=== PATIENT | female | born 1960 | race Caucasian/White ===

== ENCOUNTER 2017-03-22 08:38 | Outpatient (CLI) | payer OTHER ==
[~2017-03-22 08:38] MED LIST: ALPR-624 PO; ARIP10TA15 PO; ESTR1TAB19 PO; FLEC100T2 PO; GABA100C PO; LANS30CA37 PO; LANS30CA56 PO; NITR0.4T SL; PRO2.5T PO; TRAM50TA2 PO
[2017-03-22 09:14] LABS: BASOPHILS # (AUTO) 0.1 X10'3 (0-0.2); BASOPHILS % (AUTO) 0.8 % (0-1); EOSINOPHILS # (AUTO) 0.1 X10'3 (0-0.9); EOSINOPHILS % (AUTO) 1.9 % (0-6); HEMATOCRIT 38.7 % (35.0-45.0); HEMOGLOBIN 13.3 g/dl (12.0-16.0); LYMPHOCYTES % (AUTO) 29.2 % (21-51); MEAN CORPUSCULAR HEMOGLOBIN 28.5 PG (27.0-31.0); MEAN CORPUSCULAR HGB CONC 34.2 % (33.0-36.5); MEAN CORPUSCULAR VOLUME 83.4 FL (78-98); MEAN PLATELET VOLUME 8.4 FL (7.4-10.4); MONOCYTES # (AUTO) 0.3 X10'3 (0-0.9); MONOCYTES % (AUTO) 4.3 % (2-12); NEUTROPHILS # (AUTO) 4.3 X10'3 (1.8-7.7); NEUTROPHILS % (AUTO) 63.8 % (42-75); PLATELET COUNT 316 X10'3 (140-440); RED BLOOD COUNT 4.64 X10'6 (4.20-5.60); RED CELL DISTRIBUTION WIDTH 14.1 % (11.5-14.5); WHITE BLOOD COUNT 6.8 X10'3 (4.5-11.0)
[2017-03-22 09:17] LABS: CLARITY,URINE CLEAR (Clear); COLOR,URINE YELLOW (Yellow); GLUCOSE, URINE NEGATIVE (Neg); KETONES,URINE NEGATIVE (Neg); LEUKOCYTE ESTERASE ,URINE NEGATIVE (Neg); NITRITES, URINE NEGATIVE (Neg); OCCULT BLOOD,URINE LARGE (Neg); PH,URINE 5.5 (4.8-8.0); PROTEIN,URINE NEGATIVE (Neg); UROBILINOGEN,URINE 0.2 E.U/dL (0.2-1.0)
[2017-03-22 09:22] LABS: HEMOGLOBIN A1C 5.7 % (4.5-6.2)
[2017-03-22 09:28] LABS: UA COLLECTION TYPE NON-SPECIFIED
[2017-03-22 09:30] LABS: BACTERIA,URINE 2+ /HPF (Neg); MUCUS STRANDS FEW /LPF (Neg); RBC,URINE 0-2 /HPF (0-2); WBC,URINE 0-4 /HPF (0-4)
[2017-03-22 09:31] LABS: SQUAMOUS EPITHELIAL CELL,UR MODERATE /LPF (FEW)
[2017-03-22 09:38] LABS: ALANINE AMINOTRANSFERASE 14 U/L (12-78); ALBUMIN 3.5 G/DL (3.4-5.0); ALBUMIN/GLOBULIN RATIO 0.9 (1.1-1.5); ALKALINE PHOSPHATASE 93 IU/L (46-116); ANION GAP 10 (8-16); ASPARTATE AMINO TRANSFERASE 9 U/L (10-37); BILIRUBIN,TOTAL 0.8 MG/DL (0.1-1.0); BLOOD UREA NITROGEN 12 MG/DL (7-18); BUN/CREATININE RATIO 10.9 (6.6-38.0); CALCIUM 9.1 MG/DL (8.5-10.1); CHLORIDE 106 MMOL/L (99-107); CHOL/HDL RATIO 2.5 (0.00-4.99); CHOLESTEROL 135 MG/DL (0-200); GLUCOSE 107 MG/DL (70-104); HDL CHOLESTEROL 53 MG/DL (35-60); LDL CHOLESTEROL 67 MG/DL (50-100); SODIUM 143 MMOL/L (135-145); TOTAL PROTEIN 7.4 G/DL (6.4-8.2); TRIGLYCERIDES 147 MG/DL (20-135); eGFR 51 ML/MIN
[2017-03-23 13:20] LABS: MICROALB/CRT, RATIO 2.4 mg/g creat (0.0-30.0)
[2017-03-24 10:57] LABS: VITAMIN D, 25-HYDROXY 55.4 ng/mL (30.0-100.0)
== END 2017-03-22 23:59 | disposition home or self-care (01) ==
LOC: LAB 08:38
PROVIDERS: ATTEND Family Medicine
DX: Z00.01 Encounter for general adult medical examination with abnormal findings (principal); R73.09 Other abnormal glucose; I10 Essential (primary) hypertension; E78.2 Mixed hyperlipidemia; E55.9 Vitamin D deficiency, unspecified; E03.9 Hypothyroidism, unspecified
CPT/HCPCS: 36415; 80053; 80061; 81001; 82043; 82306; 82570; 83036; 84443; 84550; 85025

== ENCOUNTER 2017-04-21 13:24 | Emergency (ER) | payer OTHER ==
[~2017-04-21] VITALS: Ht 5367.7 cm; Wt 109.0 kg
[2017-04-21] MEDS ORDERED: dexamethasone 0.5 mg/5ml unit-dose oral solution PO STA (14:00)
[2017-04-21] MEDS ORDERED: AZIT250T2 PO (14:03)
[2017-04-21] MEDS ORDERED: GUAI-178 PO (14:03)
[2017-04-21] MEDS ORDERED: dexamethasone 4mg tablet PO ONE ×2 (14:20→14:30)
[2017-04-21 14:32] VITALS: BP 134/71
== END 2017-04-21 14:39 | disposition home or self-care (01) ==
LOC: ER 13:24
DX: J20.9 Acute bronchitis, unspecified (principal); I10 Essential (primary) hypertension; I49.9 Cardiac arrhythmia, unspecified; Z88.8 Allergy status to other drugs, medicaments and biological substances; Z79.899 Other long term (current) drug therapy
CPT/HCPCS: 99283; J8540

== ENCOUNTER 2017-06-23 19:23 | Observation (INO) | payer OTHER ==
[~2017-06-23] VITALS: Ht 165.1 cm; Wt 106.8 kg
[~2017-06-23 19:23] MED LIST changes: +GUAI-178 PO
[2017-06-23] MEDS ORDERED: nitroGLYCERIN 0.4mg SUBLingual tab SL PRN ×3 (19:50→23:10)
[2017-06-23] MEDS ORDERED: aspirin 81mg tab.chew PO ONE ×2 (19:50→21:15)
[2017-06-23 20:41] LABS: BASOPHILS # (AUTO) 0.1 X10'3 (0-0.2); BASOPHILS % (AUTO) 0.5 % (0-1); EOSINOPHILS # (AUTO) 0.2 X10'3 (0-0.9); EOSINOPHILS % (AUTO) 2.2 % (0-6); HEMATOCRIT 39.6 % (35.0-45.0); HEMOGLOBIN 13.4 g/dl (12.0-16.0); LYMPHOCYTES # (AUTO) 2.6 X10'3 (1.1-4.8); LYMPHOCYTES % (AUTO) 26.6 % (21-51); MEAN CORPUSCULAR HEMOGLOBIN 28.4 PG (27.0-31.0); MEAN CORPUSCULAR HGB CONC 33.9 % (33.0-36.5); MEAN CORPUSCULAR VOLUME 83.8 FL (78-98); MEAN PLATELET VOLUME 9.3 FL (7.4-10.4); MONOCYTES # (AUTO) 0.4 X10'3 (0-0.9); MONOCYTES % (AUTO) 4.1 % (2-12); NEUTROPHILS # (AUTO) 6.4 X10'3 (1.8-7.7); NEUTROPHILS % (AUTO) 66.6 % (42-75); PLATELET COUNT 301 X10'3 (140-440); RED BLOOD COUNT 4.72 X10'6 (4.20-5.60); RED CELL DISTRIBUTION WIDTH 13.8 % (11.5-14.5); WHITE BLOOD COUNT 9.6 X10'3 (4.5-11.0)
[2017-06-23 20:51] LABS: INR 0.9 INR; PARTIAL THROMBOPLASTIN TIME 24 SECONDS (22-32); PROTHROMBIN TIME 9.1 SECONDS (9.0-12.0)
[2017-06-23 20:56] LABS: ALANINE AMINOTRANSFERASE 18 U/L (12-78); ALBUMIN 2.9 G/DL (3.4-5.0); ALBUMIN/GLOBULIN RATIO 0.9 (1.1-1.5); ALKALINE PHOSPHATASE 73 IU/L (46-116); ANION GAP 10 (8-16); ASPARTATE AMINO TRANSFERASE 11 U/L (10-37); BILIRUBIN,TOTAL 0.3 MG/DL (0.1-1.0); BLOOD UREA NITROGEN 14 MG/DL (7-18); BUN/CREATININE RATIO 18.2 (6.6-38.0); CALCIUM 7.9 MG/DL (8.5-10.1); CHLORIDE 111 MMOL/L (99-107); CREATININE 0.77 MG/DL (0.40-0.90); GLUCOSE 116 MG/DL (70-104); SODIUM 146 MMOL/L (135-145); TOTAL CARBON DIOXIDE 25.5 MMOL/L (24-32); TOTAL PROTEIN 6.2 G/DL (6.4-8.2); eGFR 77 ML/MIN
[2017-06-23] MEDS: potassium 10mEq/100ml NS w/LIDOcaine (10mg/bag) IV SCH (22:58)
[2017-06-23] MEDS ORDERED: acetaminophen 325mg tablet PO PRN (23:05)
[2017-06-23] MEDS ORDERED: magnesium hydroxide 30ml (MOM) UD suspension PO PRN (23:05)
[2017-06-23] MEDS ORDERED: mag hydrox/Alum hydrox/simeth 30ml oral suspension PO PRN (23:05)
[2017-06-23] MEDS ORDERED: ALPRAZolam 0.5mg tablet PO PRN (23:10)
[2017-06-23] MEDS: flecainide 50mg tablet PO SCH (23:29)
[2017-06-24] VITALS (14 sets, daily range): BP systolic 110–150; BP diastolic 53–85
[2017-06-24] MEDS: flecainide 50mg tablet PO SCH ×2 (00:02→07:43)
[2017-06-24] MEDS ORDERED: flecainide 50mg tablet PO ONE (00:05)
[2017-06-24] MEDS ORDERED: potass W/LIDOcaine 10mEq/100ml 100 ML IV ONE (00:25)
[2017-06-24] MEDS: sodium chloride 0.45% 1,000 ML IV SCH ×2 (01:14→09:03)
[2017-06-24] MEDS: potassium 10mEq/100ml NS w/LIDOcaine (10mg/bag) IV SCH (02:12)
[2017-06-24] MEDS ORDERED: aripiprazole 5mg tablet PO SCH (08:00)
[2017-06-24] MEDS ORDERED: gabapentin 100mg capsule PO SCH (08:00)
[2017-06-24] MEDS ORDERED: heparin, porcine 5000 units/ml vial SQ SCH (08:00)
[2017-06-24] MEDS ORDERED: MORPHINE 2MG in 2ml NS syringe IV PRN (08:30)
[2017-06-24 08:48] LABS: BASOPHILS # (AUTO) 0.1 X10'3 (0-0.2); BASOPHILS % (AUTO) 1.4 % (0-1); EOSINOPHILS # (AUTO) 0.2 X10'3 (0-0.9); EOSINOPHILS % (AUTO) 2.1 % (0-6); HEMATOCRIT 37.6 % (35.0-45.0); HEMOGLOBIN 12.6 g/dl (12.0-16.0); LYMPHOCYTES # (AUTO) 2.1 X10'3 (1.1-4.8); LYMPHOCYTES % (AUTO) 27.2 % (21-51); MEAN CORPUSCULAR HEMOGLOBIN 28.3 PG (27.0-31.0); MEAN CORPUSCULAR HGB CONC 33.4 % (33.0-36.5); MEAN CORPUSCULAR VOLUME 84.9 FL (78-98); MEAN PLATELET VOLUME 8.7 FL (7.4-10.4); MONOCYTES # (AUTO) 0.4 X10'3 (0-0.9); MONOCYTES % (AUTO) 4.9 % (2-12); NEUTROPHILS # (AUTO) 4.9 X10'3 (1.8-7.7); NEUTROPHILS % (AUTO) 64.4 % (42-75); PLATELET COUNT 280 X10'3 (140-440); RED BLOOD COUNT 4.43 X10'6 (4.20-5.60); RED CELL DISTRIBUTION WIDTH 14.4 % (11.5-14.5); WHITE BLOOD COUNT 7.6 X10'3 (4.5-11.0)
[2017-06-24 09:03] LABS: ALANINE AMINOTRANSFERASE 18 U/L (12-78); ALBUMIN 3.1 G/DL (3.4-5.0); ALBUMIN/GLOBULIN RATIO 0.8 (1.1-1.5); ALKALINE PHOSPHATASE 75 IU/L (46-116); ANION GAP 6 (8-16); ASPARTATE AMINO TRANSFERASE 13 U/L (10-37); BILIRUBIN,TOTAL 0.5 MG/DL (0.1-1.0); BLOOD UREA NITROGEN 15 MG/DL (7-18); BUN/CREATININE RATIO 15.2 (6.6-38.0); CALCIUM 9.2 MG/DL (8.5-10.1); CHLORIDE 107 MMOL/L (99-107); CREATININE 0.99 MG/DL (0.40-0.90); GLUCOSE 124 MG/DL (70-104); POTASSIUM 4.6 MMOL/L (3.5-5.1); SODIUM 143 MMOL/L (135-145); TOTAL PROTEIN 6.8 G/DL (6.4-8.2); eGFR 58 ML/MIN
[2017-06-24] MEDS ORDERED: GABA-532 (09:38)
[2017-06-24] MEDS ORDERED: GABA-530 PO (09:38)
[2017-06-24] MEDS ORDERED: LEVO50TA (09:47)
[2017-06-24] MEDS ORDERED: LISI2.5T2 (09:47)
[2017-06-24] MEDS ORDERED: ERGO500054 (09:47)
[2017-06-24] MEDS ORDERED: VALA10002 PO (09:47)
[2017-06-24] MEDS ORDERED: ATOR10TA70 (09:47)
[2017-06-24] MEDS ORDERED: aspirin 81mg tablet.DR PO SCH (10:50)
[2017-06-24] MEDS ORDERED: fentaNYL/PF 50MCG/1 ML 2ML syringe ONE (11:00)
[2017-06-24] MEDS ORDERED: heparin 1,000unit/ml 10ml vial 10 ML ONE (11:00)
[2017-06-24] MEDS ORDERED: iohexol 350MG/ML 100ml bottle IV ONE (11:00)
[2017-06-24] MEDS ORDERED: iohexol 350 MG/ML 50ML vial IV ONE (11:00)
[2017-06-24] MEDS ORDERED: LIDOcaine 1% w/EPI 1:100,000 30ml vial (MDV) ONE (11:00)
[2017-06-24] MEDS ORDERED: midazolam 2 mg/2 ml injection ONE (11:00)
[2017-06-24] MEDS ORDERED: nitroGLYCERIN-Tridil 50MG/D5W 250 ML IV ONE (11:01)
[2017-06-24] MEDS ORDERED: heparin 1,000 UNITS/NS 500ml 500 ML ONE (11:01)
[2017-06-24 13:16] LABS: ISTAT Hct MIX 34 %PCV (35-48); ISTAT O2 SATURATION MIX VENOUS 72 % (60-80); ISTAT SOURCE MIX
[2017-06-24 13:16] LABS: ISTAT HGB ART 11.9 g/dl (12.0-16.0); ISTAT Hct ART 35 %PCV (35-48); ISTAT O2 SATURATION ARTERIAL 98 % (95-98); ISTAT SOURCE ART
[2017-06-24] MEDS ORDERED: normal saline 1000ml 1,000 ML IV ONE (13:45)
[2017-06-24] MEDS ORDERED: HYDROcodone/acetaminophen 10/325mg tab PO PRN (16:05)
[2017-06-24] MEDS ORDERED: carVEDilol 3.125mg tablet PO SCH (20:00)
[2017-06-25] MEDS ORDERED: atorvastatin 20mg tablet PO SCH (08:00)
== END 2017-06-24 19:10 | disposition home or self-care (01) ==
LOC: EEVIPCON 19:24 → ER 19:24 → ED HOLD 23:03 → PCU 3S 06-24 01:27
PROVIDERS: ADMIT Emergency Medicine; ATTEND Family Medicine
DX: R07.89 Other chest pain (principal); E03.9 Hypothyroidism, unspecified; M79.7 Fibromyalgia; G47.30 Sleep apnea, unspecified; E78.5 Hyperlipidemia, unspecified; E11.9 Type 2 diabetes mellitus without complications; I10 Essential (primary) hypertension; I25.110 Atherosclerotic heart disease of native coronary artery with unstable angina pectoris; Z87.891 Personal history of nicotine dependence; Z96.659 Presence of unspecified artificial knee joint
CPT/HCPCS: 36415; 71045; 80053; 82803; 84484; 85014; 85025; 85610; 85730; 87070; 93005; 93306; 93460; 96374; 99285; A6257; C1769; G0378; J1644; J2250; J2274; J3010; J3480; J3490; J7030; Q9967; 99152; A4620

== ENCOUNTER 2017-08-11 07:08 | Emergency (ER) | payer OTHER ==
[~2017-08-11] VITALS: Ht 163.8 cm; Wt 109.1 kg
[~2017-08-11 07:08] MED LIST changes: -ARIP10TA15 PO; +ATOR10TA70; +ERGO500054; +GABA-530 PO; +GABA-532; -GABA100C PO; -GUAI-178 PO; -LANS30CA56 PO; +LEVO50TA; +LISI2.5T2; +VALA10002 PO
[2017-08-11 07:36] LABS: BASOPHILS # (AUTO) 0.1 X10'3 (0-0.2); EOSINOPHILS # (AUTO) 0.1 X10'3 (0-0.9); EOSINOPHILS % (AUTO) 1.3 % (0-6); HEMOGLOBIN 12.6 g/dl (12.0-16.0); LYMPHOCYTES # (AUTO) 2.1 X10'3 (1.1-4.8); LYMPHOCYTES % (AUTO) 28.7 % (21-51); MEAN CORPUSCULAR HEMOGLOBIN 28.5 PG (27.0-31.0); MEAN CORPUSCULAR HGB CONC 34.2 % (33.0-36.5); MEAN CORPUSCULAR VOLUME 83.4 FL (78-98); MEAN PLATELET VOLUME 8.6 FL (7.4-10.4); MONOCYTES # (AUTO) 0.3 X10'3 (0-0.9); MONOCYTES % (AUTO) 4.7 % (2-12); NEUTROPHILS # (AUTO) 4.6 X10'3 (1.8-7.7); NEUTROPHILS % (AUTO) 64.3 % (42-75); PLATELET COUNT 305 X10'3 (140-440); RED BLOOD COUNT 4.44 X10'6 (4.20-5.60); RED CELL DISTRIBUTION WIDTH 13.9 % (11.5-14.5); WHITE BLOOD COUNT 7.2 X10'3 (4.5-11.0)
[2017-08-11 07:59] LABS: ALANINE AMINOTRANSFERASE 23 U/L (12-78); ALBUMIN 3.1 G/DL (3.4-5.0); ALBUMIN/GLOBULIN RATIO 0.8 (1.1-1.5); ALKALINE PHOSPHATASE 89 IU/L (46-116); ANION GAP 11 (8-16); ASPARTATE AMINO TRANSFERASE 13 U/L (10-37); BILIRUBIN,TOTAL 0.6 MG/DL (0.1-1.0); BLOOD UREA NITROGEN 10 MG/DL (7-18); BUN/CREATININE RATIO 9.6 (6.6-38.0); CHLORIDE 106 MMOL/L (99-107); CREATININE 1.04 MG/DL (0.40-0.90); GLUCOSE 158 MG/DL (70-104); POTASSIUM 3.5 MMOL/L (3.5-5.1); SODIUM 142 MMOL/L (135-145); TOTAL CARBON DIOXIDE 25.2 MMOL/L (24-32); eGFR 54 ML/MIN
[2017-08-11 08:06] LABS: MAGNESIUM 1.7 MG/DL (1.5-2.4)
[2017-08-11 08:32] VITALS: BP 103/70
== END 2017-08-11 08:57 | disposition home or self-care (01) ==
LOC: ER 07:08
DX: M79.662 Pain in left lower leg (principal); R60.0 Localized edema; E03.9 Hypothyroidism, unspecified; I10 Essential (primary) hypertension; Z98.890 Other specified postprocedural states; Z79.899 Other long term (current) drug therapy; Z88.1 Allergy status to other antibiotic agents
CPT/HCPCS: 36415; 80053; 83735; 83880; 84484; 85025; 93971; 99285

== ENCOUNTER 2017-11-18 15:18 | Outpatient (CLI) | payer OTHER ==
[2017-11-18 16:04] LABS: ALBUMIN 3.2 G/DL (3.4-5.0); ANION GAP 9 (8-16); BLOOD UREA NITROGEN 12 MG/DL (7-18); BUN/CREATININE RATIO 10.4 (6.6-38.0); CHLORIDE 104 MMOL/L (99-107); CREATININE 1.15 MG/DL (0.40-0.90); GLUCOSE 119 MG/DL (70-104); POTASSIUM 3.5 MMOL/L (3.5-5.1); SODIUM 141 MMOL/L (135-145); TOTAL CARBON DIOXIDE 27.6 MMOL/L (24-32); eGFR 48 ML/MIN
[2017-11-18 16:07] LABS: HEMOGLOBIN A1C 6.4 % (4.5-6.2)
== END 2017-11-18 23:59 | disposition home or self-care (01) ==
LOC: LAB 15:18
PROVIDERS: ATTEND Family Medicine
DX: I10 Essential (primary) hypertension (principal); R73.09 Other abnormal glucose; Z87.891 Personal history of nicotine dependence
CPT/HCPCS: 36415; 80048; 83036

== ENCOUNTER 2018-01-13 14:13 | Outpatient (CLI) | payer OTHER ==
[~2018-01-13 14:13] MED LIST changes: +ALPR1TAB2 PO; +ASPI-1264 PO; +CHOL500050; +DILT120T14 PO; +FLEC50TA PO; +FURO-149 PO; +GABA300C PO; +HYDR-3972 PO; +LANS30TA4 PO; +LEVO50TA8 PO; +LISI-600 PO; +MEDR2.5T PO; +METF500T PO; +POTA10TA19 PO; +WALKERFR
== END 2018-01-13 23:59 | disposition home or self-care (01) ==
LOC: RAD 14:13
PROVIDERS: ATTEND Orthopaedic Surgery
DX: M22.41 Chondromalacia patellae, right knee (principal); M25.461 Effusion, right knee; I10 Essential (primary) hypertension; Z96.652 Presence of left artificial knee joint; Z87.891 Personal history of nicotine dependence; Z79.899 Other long term (current) drug therapy
CPT/HCPCS: 73721

== ENCOUNTER 2018-03-05 09:24 | Outpatient (CLI) | payer OTHER ==
[~2018-03-05 09:24] MED LIST changes: -ASPI-1264 PO
== END 2018-03-05 23:59 | disposition home or self-care (01) ==
LOC: LAB 09:24
PROVIDERS: ATTEND Family Medicine
DX: R73.02 Impaired glucose tolerance (oral) (principal); I10 Essential (primary) hypertension
CPT/HCPCS: 36415; 83036

== ENCOUNTER 2018-07-05 08:46 | Outpatient (CLI) | payer OTHER | END 2018-07-05 23:59 | disposition home or self-care (01) | LOC: LAB 08:46 | PROVIDERS: ATTEND Family Medicine | DX: R73.09 Other abnormal glucose (principal) | CPT/HCPCS: 36415; 83036 ==

== ENCOUNTER 2018-09-09 10:55 | Outpatient (CLI) | payer OTHER ==
[2018-11-04] MEDS ORDERED: UMEC62.5 INH (15:56)
[2018-11-04] MEDS ORDERED: NITR0.4T51 SL (15:56)
[2018-11-11] MEDS ORDERED: ATOR10TA PO (10:41)
[2018-11-11] MEDS ORDERED: DILT-35 PO (10:43)
[2018-11-11] MEDS ORDERED: ERGO500014 PO (10:43)
[2018-11-11] MEDS ORDERED: LEVO50TA8 PO (10:47)
[2018-11-11] MEDS ORDERED: LISI2.5T2 PO (10:48)
[2018-11-11] MEDS ORDERED: TRAM50TA2 PO (10:52)
[2018-11-11] MEDS ORDERED: POTA20TA19 PO (10:55)
[2018-11-11] MEDS ORDERED: ALPR-624 PO (10:56)
[2018-11-11] MEDS ORDERED: PROG100C11 PO (10:57)
== END 2018-09-09 23:59 | disposition home or self-care (01) ==
LOC: RAD 10:55
PROVIDERS: ATTEND Family Medicine
DX: R06.02 Shortness of breath (principal); R91.8 Other nonspecific abnormal finding of lung field; I10 Essential (primary) hypertension; Z87.891 Personal history of nicotine dependence
CPT/HCPCS: 71046

== ENCOUNTER 2018-09-11 09:08 | Outpatient (CLI) | payer OTHER ==
[2018-09-11 10:08] LABS: BASOPHILS # (AUTO) 0.1 X10'3 (0-0.2); BASOPHILS % (AUTO) 0.9 % (0-1); EOSINOPHILS # (AUTO) 0.2 X10'3 (0-0.9); EOSINOPHILS % (AUTO) 2.1 % (0-6); HEMATOCRIT 37.7 % (35.0-45.0); HEMOGLOBIN 12.2 g/dl (12.0-16.0); LYMPHOCYTES # (AUTO) 2.2 X10'3 (1.1-4.8); LYMPHOCYTES % (AUTO) 29.4 % (21-51); MEAN CORPUSCULAR HEMOGLOBIN 26.9 PG (27.0-31.0); MEAN CORPUSCULAR HGB CONC 32.3 g/dL (33.0-36.5); MEAN CORPUSCULAR VOLUME 83.4 FL (78-98); MEAN PLATELET VOLUME 8.4 FL (7.4-10.4); MONOCYTES # (AUTO) 0.4 X10'3 (0-0.9); MONOCYTES % (AUTO) 5.5 % (2-12); NEUTROPHILS # (AUTO) 4.6 X10'3 (1.8-7.7); NEUTROPHILS % (AUTO) 62.1 % (42-75); PLATELET COUNT 349 X10'3 (140-440); RED BLOOD COUNT 4.52 X10'6 (4.20-5.60); WHITE BLOOD COUNT 7.4 X10'3 (4.5-11.0)
[2018-09-11 10:25] LABS: ALANINE AMINOTRANSFERASE 19 U/L (12-78); ALBUMIN 3.1 G/DL (3.4-5.0); ALBUMIN/GLOBULIN RATIO 0.8 (1.1-1.5); ALKALINE PHOSPHATASE 88 IU/L (46-116); ANION GAP 10 (8-16); ASPARTATE AMINO TRANSFERASE 9 U/L (10-37); BILIRUBIN,TOTAL 0.6 MG/DL (0.1-1.0); BLOOD UREA NITROGEN 10 MG/DL (7-18); BUN/CREATININE RATIO 10.5 (6.6-38.0); CHLORIDE 105 MMOL/L (99-107); CHOL/HDL RATIO 2.4 (0.00-4.99); CHOLESTEROL 116 MG/DL (0-200); CREATININE 0.95 MG/DL (0.40-0.90); GLUCOSE 105 MG/DL (70-104); HDL CHOLESTEROL 49 MG/DL (35-60); LDL CHOLESTEROL 51 MG/DL (50-100); POTASSIUM 4.3 MMOL/L (3.5-5.1); SODIUM 140 MMOL/L (135-145); TOTAL CARBON DIOXIDE 25.3 MMOL/L (24-32); TOTAL PROTEIN 7.2 G/DL (6.4-8.2); TRIGLYCERIDES 136 MG/DL (20-135); eGFR 60 ML/MIN
[2018-09-12 08:24] LABS: MICROALB/CRT, RATIO <4.8 mg/g creat (0.0-30.0)
[2018-11-04] MEDS ORDERED: NITR0.4T51 SL (15:56)
[2018-11-04] MEDS ORDERED: UMEC62.5 INH (15:56)
[2018-11-11] MEDS ORDERED: ATOR10TA PO (10:41)
[2018-11-11] MEDS ORDERED: ERGO500014 PO (10:43)
[2018-11-11] MEDS ORDERED: DILT-35 PO (10:43)
[2018-11-11] MEDS ORDERED: LEVO50TA8 PO (10:47)
[2018-11-11] MEDS ORDERED: LISI2.5T2 PO (10:48)
[2018-11-11] MEDS ORDERED: TRAM50TA2 PO (10:52)
[2018-11-11] MEDS ORDERED: POTA20TA19 PO (10:55)
[2018-11-11] MEDS ORDERED: ALPR-624 PO (10:56)
[2018-11-11] MEDS ORDERED: PROG100C11 PO (10:57)
== END 2018-09-11 23:59 | disposition home or self-care (01) ==
LOC: LAB 09:08
PROVIDERS: ATTEND Family Medicine
DX: E03.9 Hypothyroidism, unspecified (principal); I10 Essential (primary) hypertension; E78.2 Mixed hyperlipidemia; R73.09 Other abnormal glucose; Z87.891 Personal history of nicotine dependence
CPT/HCPCS: 36415; 80053; 80061; 82043; 82570; 83036; 84443; 85025

== ENCOUNTER 2018-10-21 07:41 | Outpatient (CLI) | payer OTHER ==
[2018-10-21] VITALS (8 sets, daily range): BP systolic 121–137; BP diastolic 69–80
[~2018-10-21] VITALS: Ht 165.1 cm; Wt 112.7 kg
[2018-10-21] MEDS ORDERED: normal saline 500ml IV soln 500 ML IV ONE (08:30)
[2018-10-21] MEDS ORDERED: nitroGLYCERIN 0.4mg SUBLingual tab SL PRN (08:30)
[2018-10-21] MEDS ORDERED: aminophylline 250mg/10ml inj. IV PRN (08:30)
[2018-10-21] MEDS ORDERED: regadenoson 0.4mg/5ml syringe IV ONE (08:30)
[2018-11-04] MEDS ORDERED: UMEC62.5 INH (15:56)
[2018-11-04] MEDS ORDERED: NITR0.4T51 SL (15:56)
[2018-11-11] MEDS ORDERED: ATOR10TA PO (10:41)
[2018-11-11] MEDS ORDERED: DILT-35 PO (10:43)
[2018-11-11] MEDS ORDERED: ERGO500014 PO (10:43)
[2018-11-11] MEDS ORDERED: LEVO50TA8 PO (10:47)
[2018-11-11] MEDS ORDERED: LISI2.5T2 PO (10:48)
[2018-11-11] MEDS ORDERED: TRAM50TA2 PO (10:52)
[2018-11-11] MEDS ORDERED: POTA20TA19 PO (10:55)
[2018-11-11] MEDS ORDERED: ALPR-624 PO (10:56)
[2018-11-11] MEDS ORDERED: PROG100C11 PO (10:57)
== END 2018-10-21 23:59 | disposition home or self-care (01) ==
LOC: RAD 07:41
PROVIDERS: ATTEND Internal Medicine Cardiovascular Disease
DX: R07.9 Chest pain, unspecified (principal); I10 Essential (primary) hypertension; Z98.51 Tubal ligation status; Z87.891 Personal history of nicotine dependence
CPT/HCPCS: 78452; 93017; A9500; J0280; J2785; J7040

== ENCOUNTER 2018-11-12 08:34 | Inpatient (IN) | payer OTHER ==
[2018-11-04 12:48] LABS: BASOPHILS # (AUTO) 0.1 X10'3 (0-0.2); BASOPHILS % (AUTO) 0.9 % (0-1); EOSINOPHILS # (AUTO) 0.1 X10'3 (0-0.9); EOSINOPHILS % (AUTO) 1.5 % (0-6); LYMPHOCYTES # (AUTO) 2.5 X10'3 (1.1-4.8); LYMPHOCYTES % (AUTO) 31.4 % (21-51); MEAN CORPUSCULAR HEMOGLOBIN 27.5 PG (27.0-31.0); MEAN CORPUSCULAR HGB CONC 33.7 g/dL (33.0-36.5); MEAN CORPUSCULAR VOLUME 81.5 FL (78-98); MEAN PLATELET VOLUME 8.3 FL (7.4-10.4); MONOCYTES # (AUTO) 0.4 X10'3 (0-0.9); MONOCYTES % (AUTO) 5.3 % (2-12); NEUTROPHILS # (AUTO) 4.8 X10'3 (1.8-7.7); NEUTROPHILS % (AUTO) 60.9 % (42-75); PRE OP HEMATOCRIT 37.9 % (35.0-45.0); PRE OP HEMOGLOBIN 12.8 g/dL (12.0-16.0); PRE OP PLATELET COUNT 352 X10'3 (140-440); RED BLOOD COUNT 4.64 X10'6 (4.20-5.60); RED CELL DISTRIBUTION WIDTH 15.1 % (11.5-14.5)
[2018-11-04 13:08] LABS: ALBUMIN 3.3 G/DL (3.4-5.0); ALBUMIN/GLOBULIN RATIO 0.8 (1.1-1.5); ALKALINE PHOSPHATASE 94 IU/L (46-116); BLOOD UREA NITROGEN 8 MG/DL (7-18); BUN/CREATININE RATIO 8.1 (6.6-38.0); CHLORIDE 105 MMOL/L (99-107); CREATININE 0.99 MG/DL (0.40-0.90); PRE OP ALT 22 U/L (30-65); PRE OP ANION GAP 9 (8-16); PRE OP AST 13 U/L (10-37); PRE OP BILIRUB, TOTAL 0.9 MG/DL (0.0-1.0); PRE OP GLUCOSE 94 MG/DL (70-104); PRE OP POTASSIUM 3.8 MMOL/L (3.4-5.1); PRE OP SODIUM 142 MMOL/L (135-145); TOTAL CARBON DIOXIDE 28.4 MMOL/L (24-32); TOTAL PROTEIN 7.4 G/DL (6.4-8.2); eGFR 57 ML/MIN
[~2018-11-12] VITALS: Ht 165.1 cm; Wt 111.6 kg
[2018-11-12] VITALS (18 sets, daily range): BP systolic 90–137; BP diastolic 47–78
[~2018-11-12 08:34] MED LIST changes: -ALPR1TAB2 PO; +ATOR10TA PO; -ATOR10TA70; -CHOL500050; +DILT-35 PO; -DILT120T14 PO; +ERGO500014 PO; -ERGO500054; -FLEC100T2 PO; -GABA-530 PO; -GABA-532; -HYDR-3972 PO; -LANS30TA4 PO; -LEVO50TA; -LISI-600 PO; -LISI2.5T2; +LISI2.5T2 PO; -MEDR2.5T PO; -NITR0.4T SL; +NITR0.4T51 SL; -POTA10TA19 PO; +POTA20TA19 PO; -PRO2.5T PO; +PROG100C11 PO; +UMEC62.5 INH; -VALA10002 PO; -WALKERFR
[2018-11-12] MEDS ORDERED: hydrALAZINE 20mg/ml inj. IV PRN (11:15)
[2018-11-12] MEDS ORDERED: fentaNYL/PF 50MCG/1 ML 2ML syringe IV PRN ×2 (11:15)
[2018-11-12] MEDS ORDERED: ringers solution, lacted 1,000 ML IV SCH ×2 (11:15→12:30)
[2018-11-12] MEDS ORDERED: labetalol 20mg/4ml (5mg/ml) syringe IV PRN (11:15)
[2018-11-12] MEDS ORDERED: morphine 4 MG/ML inj SYRINge IV PRN ×2 (11:15)
[2018-11-12] MEDS ORDERED: ondansetron/PF 4mg/2ml inj IV PRN (11:15)
[2018-11-12] MEDS ORDERED: tetracaine 1% (10mg/ml) pres. free inj. ONE (11:18)
[2018-11-12] MEDS ORDERED: dexmedetomidine 200mcg/2ml inj. IV ONE (11:18)
[2018-11-12] MEDS ORDERED: morphine 10mg/ml inj. ONE (11:33)
[2018-11-12] MEDS ORDERED: vancomycin 1,000mg inj ONE (11:33)
[2018-11-12] MEDS ORDERED: epiNEPHrine 1 mg/ml inj ONE (11:33)
[2018-11-12] MEDS ORDERED: ketorolac trometh. 30mg/ml inj. ONE (11:33)
[2018-11-12] MEDS ORDERED: ROPIVAcaine 0.5% (5mg/ml) 30ml vial ONE (11:34)
[2018-11-12] MEDS ORDERED: mineral oil 10ml sterile, topical TP ONE (11:34)
[2018-11-12] MEDS ORDERED: ceFAZolin 1000mg inj ONE (11:34)
[2018-11-12] MEDS ORDERED: MIDAZolam 1mg/ml 10ml vial ONE (12:09)
[2018-11-12] MEDS ORDERED: propofol inj 20 ML IV ONE (12:23)
[2018-11-12] MEDS ORDERED: oxyCODONE SR 10mg (sust. release) tab -2 tabs (20mg) PO ONE (12:30)
[2018-11-12] MEDS ORDERED: cefazolin/dext.iso 2gm/50ml 50 ML IV ONE (12:30)
[2018-11-12] MEDS ORDERED: famotidine 20mg tablet PO ONE (12:30)
[2018-11-12] MEDS ORDERED: tranexamic acid inj. 1,000 MG in normal saline 100 ML IV ONE (12:30)
[2018-11-12] MEDS ORDERED: gabapentin 300mg capsule PO ONE (12:30)
[2018-11-12] MEDS ORDERED: acetaminophen 325mg tablet PO ONE (12:30)
[2018-11-12] MEDS ORDERED: clindamycin-Cleocin 900mg/D5W 50 ML IV ONE (12:30)
[2018-11-12] MEDS ORDERED: metoclopramide 5 mg/ml inj IV ONE (12:30)
[2018-11-12] MEDS ORDERED: magnesium hydroxide 30ml (MOM) UD suspension PO PRN (14:20)
[2018-11-12] MEDS ORDERED: tranexamic acid inj. 1,100 MG in normal saline 100ml IV soln 100 ML IV ONE (14:20)
[2018-11-12] MEDS ORDERED: diphenhydrAMINE 25mg capsule PO PRN (14:20)
[2018-11-12] MEDS ORDERED: bisacodyl 10mg suppository rectal RC PRN (14:20)
[2018-11-12] MEDS ORDERED: acetaminophen 325mg tablet PO PRN (14:20)
[2018-11-12] MEDS ORDERED: oxyCODONE IR 5mg (immed. release) tablet PO PRN (14:20)
--- NOTE | 2018-11-12 15:00 | NUR ---
Received from OR via [facility] , accompanied by Anesthesiologist TIKI and report given by Anesthesiolgist. PATIENT WITH 18G PIV IN LEFT UE RUNNING LR AT 100. PATIENT WITH RIGHT KNEE WRAP, DEISY, + DORSALIS PEDIS, POWDER PACK AND NO DRAINAGE PRESENT TO DRESSING. PATIENT WITGH 10L MASK ON WITH 100% SATURATIONS. DENIES PAIN 2' NERVE BLOCK T11-T12 SENSATION AND SPINAL ANESTHESIA. ON Q ATTACHED UPON ARRIVAL. Addendum: 11/12/18 at 1516 by Delfino Salinas RN, RN Amended: Links added.
--- NOTE | 2018-11-12 16:00 | NUR ---
ALL CRITERIA FOR TRANSFER TO THE FLOOR HAS BEEN ACHIEVED. VSS. BED LOW, CALL LIGHT AND VS. SET IN PLACE. RN PRESENT TO ACCEPT CARE. PATIENT RESTING COMFORTABLY IN BED. BELONGINGS SENT WITH PATIENT. DRESSINGS CDI. CARE TURNED OVER TO TIBURCIO CASTILLO. VSS . DENIES PAIN. Addendum: 11/12/18 at 1633 by Delfino Sosa - TIBURCIO DEY Amended: Links added.
[2018-11-12] MEDS: ROPIVAcaine 0.2%/PF PAIN PUMP 550 ML IJ SCH (16:11)
[2018-11-12] MEDS ORDERED: ALPRAZolam 0.5mg tablet PO PRN (16:20)
[2018-11-12] MEDS ORDERED: nitroGLYCERIN 0.4mg SUBLingual tab SL PRN (16:20)
[2018-11-12] MEDS ORDERED: traMADol 50MG tablet PO PRN (16:20)
[2018-11-12] MEDS: ondansetron/PF 4mg/2ml inj IV PRN (16:38)
--- NOTE | 2018-11-12 18:10 | NUR ---
Problems reprioritized. Patient report given, questions answered & plan of care reviewed with MAURISIO DEY.
[2018-11-12] MEDS: ceFAZolin 1GM/D5W- ADD-VANTAGE 50 ML IV SCH ×2 (19:34→23:44)
[2018-11-12] MEDS: potassium cl 20mEq in 1/2 NS 1,000 ML IV SCH ×2 (19:35→22:20)
[2018-11-12] MEDS: HYDROmorphone inj. 0.5 MG/0.5 ML DISP.SYRIN IV PRN (19:35)
[2018-11-12] MEDS ORDERED: proCHLORperazine 25mg suppository RC PRN (19:55)
--- NOTE | 2018-11-12 19:57 | NUR ---
called DR. Miller for nausea uncontrolled with zofran. compazine ordered suppository as first preference, IV if needed. Patient declined compazine suppository at this time. requested benadryl first and will try compazine later. c/o itching nose "probably from the narcotics".
[2018-11-12] MEDS: metFORMIN 500mg tablet PO SCH (20:00)
[2018-11-12] MEDS: acetaminophen 325mg tablet PO SCH ×2 (20:00→23:48)
[2018-11-12] MEDS: flecainide 50mg tablet PO SCH (20:00)
[2018-11-12] MEDS ORDERED: gabapentin 300mg capsule PO SCH (21:00)
[2018-11-12] MEDS: sennosides 8.6mg tablet PO SCH (21:00)
[2018-11-12] MEDS: progesterone, micronized 100mg capsule PO SCH (21:00)
[2018-11-12] MEDS: gabapentin 300mg capsule PO SCH (23:45)
[2018-11-13 02:27] VITALS: BP 115/62
[2018-11-13] MEDS: oxyCODONE IR 5mg (immed. release) tablet PO PRN ×4 (04:26→19:27)
[2018-11-13] MEDS: potassium cl 20mEq in 1/2 NS 1,000 ML IV SCH ×3 (04:30→22:20)
[2018-11-13] MEDS: HYDROmorphone inj. 0.5 MG/0.5 ML DISP.SYRIN IV PRN (05:47)
[2018-11-13 06:01] LABS: BASOPHILS % (AUTO) 0.4 % (0-1); EOSINOPHILS # (AUTO) 0.1 X10'3 (0-0.9); EOSINOPHILS % (AUTO) 0.8 % (0-6); HEMATOCRIT 30.5 % (35.0-45.0); HEMOGLOBIN 10.2 g/dl (12.0-16.0); LYMPHOCYTES # (AUTO) 1.5 X10'3 (1.1-4.8); LYMPHOCYTES % (AUTO) 19.9 % (21-51); MEAN CORPUSCULAR HEMOGLOBIN 27.9 PG (27.0-31.0); MEAN CORPUSCULAR HGB CONC 33.3 g/dL (33.0-36.5); MEAN CORPUSCULAR VOLUME 83.7 FL (78-98); MEAN PLATELET VOLUME 8.4 FL (7.4-10.4); MONOCYTES # (AUTO) 0.5 X10'3 (0-0.9); MONOCYTES % (AUTO) 6.2 % (2-12); NEUTROPHILS # (AUTO) 5.7 X10'3 (1.8-7.7); NEUTROPHILS % (AUTO) 72.7 % (42-75); PLATELET COUNT 247 X10'3 (140-440); RED BLOOD COUNT 3.65 X10'6 (4.20-5.60); RED CELL DISTRIBUTION WIDTH 15.4 % (11.5-14.5); WHITE BLOOD COUNT 7.8 X10'3 (4.5-11.0)
[2018-11-13 06:09] LABS: ANION GAP 7 (8-16); CHLORIDE 105 MMOL/L (99-107); POTASSIUM 3.8 MMOL/L (3.5-5.1); SODIUM 139 MMOL/L (135-145); TOTAL CARBON DIOXIDE 27.2 MMOL/L (24-32)
--- NOTE | 2018-11-13 06:19 | NUR ---
reported to days. noted pt pain level and dilaudid given.
[2018-11-13 06:30] VITALS: BP 96/45
--- NOTE | 2018-11-13 06:47 | NUR ---
I have received patient report from Luz DEY
[2018-11-13] MEDS ORDERED: ergocalciferol (Vitamin D) 50,000 unit capsule PO SCH (08:00)
[2018-11-13] MEDS: furosemide 40mg tablet PO SCH (08:00)
[2018-11-13] MEDS: gabapentin 300mg capsule PO SCH ×2 (08:04→20:27)
[2018-11-13] MEDS: flecainide 50mg tablet PO SCH ×2 (08:04→20:28)
[2018-11-13] MEDS: metFORMIN 500mg tablet PO SCH ×2 (08:04→19:27)
[2018-11-13] MEDS: pantoprazole 40mg Tablet.DR PO SCH (08:04)
[2018-11-13] MEDS: levoTHYROXINE 25mcg tablet PO SCH (08:05)
[2018-11-13] MEDS: atorvastatin 10mg tablet PO SCH (08:06)
[2018-11-13] MEDS: potassium Cl 20 mEq SR tablet PO SCH (08:06)
[2018-11-13] MEDS: estradiol 1mg tablet PO SCH (08:06)
[2018-11-13] MEDS: lisinopril 2.5mg tablet PO SCH (08:06)
[2018-11-13] MEDS: acetaminophen 325mg tablet PO SCH ×3 (08:07→20:28)
[2018-11-13] MEDS: enoxaparin 40mg/0.4ml syringe SQ SCH (08:08)
[2018-11-13] MEDS ORDERED: ASPI-1264 PO (08:33)
[2018-11-13] MEDS ORDERED: OXYC-150 PO (08:33)
[2018-11-13] MEDS: ipratropium 0.5 MG/2.5ML nebule NEB SCH ×4 (09:22→21:07)
[2018-11-13 10:00] VITALS: BP 100/58
[2018-11-13] MEDS: HYDROmorphone 1 mg/ml syringe IV PRN ×3 (11:49→19:58)
--- NOTE | 2018-11-13 13:58 | NUR ---
Joint surgery consult: Pt s/p R TKA advanced to regular diet. Pt seen by MARIO ALBERTO for written/verbal high protein ed w/ RD contact information provided. Pt endorses good appetite and agrees to blueberry burmese yogurt only w/ breakfast tomorrow. LBM 11/11. Will continue to monitor. Addendum: 11/13/18 at [address] Amended: Links added.
--- NOTE | 2018-11-13 14:00 | NUR ---
on q moved to 10ml/hr
--- NOTE | 2018-11-13 17:37 | NUR ---
Patient refused blood sugars
[2018-11-13 18:00] VITALS: BP 143/66
--- NOTE | 2018-11-13 18:00 | NUR ---
Patient in room ORTHO 4016. I have received report from AIDE and had the opportunity to ask questions and assume patient care.
--- NOTE | 2018-11-13 18:00 | NUR ---
Patient in room ORTHO 4016. I have received report from TIBURCIO Cespedes and had the opportunity to ask questions and assume patient care.
--- NOTE | 2018-11-13 18:23 | NUR ---
Patient report given to Quincy Rn's
--- NOTE | 2018-11-13 20:07 | NUR ---
UQ pump increase to 14 ml/h
[2018-11-13] MEDS: celeCOXIB 100mg capsule PO SCH (20:27)
[2018-11-13] MEDS: sennosides 8.6mg tablet PO SCH (21:00)
[2018-11-13] MEDS: progesterone, micronized 100mg capsule PO SCH (21:00)
[2018-11-13 22:00] VITALS: BP 140/59
[2018-11-13] MEDS: oxyCODONE/APAP 10/325mg tablet PO PRN (22:55)
[2018-11-14] MEDS: acetaminophen 325mg tablet PO SCH ×3 (01:25→14:00)
[2018-11-14] MEDS: HYDROmorphone 1 mg/ml syringe IV PRN ×3 (01:26→20:30)
[2018-11-14] MEDS: diphenhydrAMINE 25mg capsule PO PRN ×2 (02:42→22:45)
[2018-11-14] MEDS: ipratropium 0.5 MG/2.5ML nebule NEB SCH ×4 (03:07→20:18)
[2018-11-14] MEDS: oxyCODONE/APAP 10/325mg tablet PO PRN ×6 (05:23→22:46)
[2018-11-14 06:00] VITALS: BP 149/69
[2018-11-14] MEDS: potassium cl 20mEq in 1/2 NS 1,000 ML IV SCH (06:20)
--- NOTE | 2018-11-14 06:20 | NUR ---
Problems reprioritized. Patient report given, questions answered & plan of care reviewed with jess.
--- NOTE | 2018-11-14 06:35 | NUR ---
Problems reprioritized. Patient report given, questions answered & plan of care reviewed with TIBURCIO Cedeno.
--- NOTE | 2018-11-14 06:41 | NUR ---
Patient in room ORTHO 4016. I have received report from Anisa DEY and had the opportunity to ask questions and assume patient care.
[2018-11-14 06:43] LABS: BASOPHILS % (AUTO) 0.5 % (0-1); EOSINOPHILS % (AUTO) 0.5 % (0-6); HEMATOCRIT 33.6 % (35.0-45.0); HEMOGLOBIN 11.3 g/dl (12.0-16.0); LYMPHOCYTES # (AUTO) 1.7 X10'3 (1.1-4.8); MEAN CORPUSCULAR HEMOGLOBIN 27.7 PG (27.0-31.0); MEAN CORPUSCULAR HGB CONC 33.7 g/dL (33.0-36.5); MEAN CORPUSCULAR VOLUME 82.2 FL (78-98); MEAN PLATELET VOLUME 8.6 FL (7.4-10.4); MONOCYTES # (AUTO) 0.6 X10'3 (0-0.9); MONOCYTES % (AUTO) 6.9 % (2-12); NEUTROPHILS # (AUTO) 6.4 X10'3 (1.8-7.7); NEUTROPHILS % (AUTO) 73.1 % (42-75); PLATELET COUNT 291 X10'3 (140-440); RED BLOOD COUNT 4.09 X10'6 (4.20-5.60); RED CELL DISTRIBUTION WIDTH 15.7 % (11.5-14.5); WHITE BLOOD COUNT 8.8 X10'3 (4.5-11.0)
[2018-11-14] MEDS: furosemide 40mg tablet PO SCH (08:00)
[2018-11-14] MEDS: enoxaparin 40mg/0.4ml syringe SQ SCH (09:09)
[2018-11-14] MEDS: lisinopril 2.5mg tablet PO SCH (09:11)
[2018-11-14] MEDS: celeCOXIB 100mg capsule PO SCH ×2 (09:11→20:24)
[2018-11-14] MEDS: estradiol 1mg tablet PO SCH (09:11)
[2018-11-14] MEDS: flecainide 50mg tablet PO SCH ×2 (09:11→20:24)
[2018-11-14] MEDS: pantoprazole 40mg Tablet.DR PO SCH (09:11)
[2018-11-14] MEDS: gabapentin 300mg capsule PO SCH ×2 (09:11→20:24)
[2018-11-14] MEDS: potassium Cl 20 mEq SR tablet PO SCH (09:12)
[2018-11-14] MEDS: levoTHYROXINE 25mcg tablet PO SCH (09:12)
[2018-11-14] MEDS: atorvastatin 10mg tablet PO SCH (09:12)
[2018-11-14] MEDS: metFORMIN 500mg tablet PO SCH ×2 (09:12→20:24)
[2018-11-14 10:00] VITALS: BP 125/83
[2018-11-14] MEDS: ROPIVAcaine 0.2%/PF PAIN PUMP 550 ML IJ SCH (11:15)
[2018-11-14] MEDS ORDERED: acetaminophen 325mg tablet PO PRN (14:20)
[2018-11-14] MEDS: ondansetron/PF 4mg/2ml inj IV PRN (16:33)
[2018-11-14 18:00] VITALS: BP 133/76
--- NOTE | 2018-11-14 18:00 | NUR ---
Patient in room ORTHO 4016. I have received report from miami and had the opportunity to ask questions and assume patient care.
--- NOTE | 2018-11-14 18:00 | NUR ---
Patient in room ORTH[facility] 4016. I have received report from TIBURCIO Crum and had the opportunity to ask questions and assume patient care.
--- NOTE | 2018-11-14 18:02 | NUR ---
Problems reprioritized. Patient report given, questions answered & plan of care reviewed with Anisa DEY.
[2018-11-14] MEDS: proCHLORperazine 10 MG/2 ml inj IV PRN (18:34)
[2018-11-14] MEDS: progesterone, micronized 100mg capsule PO SCH (20:35)
[2018-11-14] MEDS: sennosides 8.6mg tablet PO SCH (20:35)
[2018-11-14 22:00] VITALS: BP 90/60
[2018-11-14 22:44] VITALS: BP 118/63
[2018-11-15] MEDS: HYDROmorphone 1 mg/ml syringe IV PRN (01:36)
[2018-11-15] MEDS: ipratropium 0.5 MG/2.5ML nebule NEB SCH ×3 (03:00→20:16)
[2018-11-15] MEDS: oxyCODONE/APAP 10/325mg tablet PO PRN ×4 (05:19→19:46)
[2018-11-15 06:10] VITALS: BP 125/72
--- NOTE | 2018-11-15 06:30 | NUR ---
Problems reprioritized. Patient report given, questions answered & plan of care reviewed with TIBURCIO Cespedes.
--- NOTE | 2018-11-15 07:04 | NUR ---
I have received patient report from Anisa DEY
[2018-11-15] MEDS: furosemide 40mg tablet PO SCH (08:00)
[2018-11-15] MEDS: estradiol 1mg tablet PO SCH (08:25)
[2018-11-15] MEDS: flecainide 50mg tablet PO SCH ×2 (08:26→20:47)
[2018-11-15] MEDS: levoTHYROXINE 25mcg tablet PO SCH (08:26)
[2018-11-15] MEDS: atorvastatin 10mg tablet PO SCH (08:27)
[2018-11-15] MEDS: metFORMIN 500mg tablet PO SCH ×2 (08:27→20:46)
[2018-11-15] MEDS: pantoprazole 40mg Tablet.DR PO SCH (08:27)
[2018-11-15] MEDS: celeCOXIB 100mg capsule PO SCH ×2 (08:27→20:46)
[2018-11-15] MEDS: potassium Cl 20 mEq SR tablet PO SCH (08:27)
[2018-11-15] MEDS: lisinopril 2.5mg tablet PO SCH (08:28)
[2018-11-15] MEDS: enoxaparin 40mg/0.4ml syringe SQ SCH (08:35)
[2018-11-15] MEDS: gabapentin 300mg capsule PO SCH ×2 (08:37→20:46)
[2018-11-15 10:00] VITALS: BP 120/62
[2018-11-15 18:00] VITALS: BP 119/64
--- NOTE | 2018-11-15 18:00 | NUR ---
Patient in room [facility]TH[facility] 4016. I have received report from carey and had the opportunity to ask questions and assume patient care.
--- NOTE | 2018-11-15 18:09 | NUR ---
Patient report given to Anisa DEY
--- NOTE | 2018-11-15 19:30 | NUR ---
pt. I. V infiltrated ,she was nauseous ,Compazine I.V was trying to be given ,but her i.v .was not working. has been notified and we stitched i.v. to herman Bond.We will continue with pt. care.
[2018-11-15] MEDS: proCHLORperazine 10 MG/2 ml inj IV PRN (19:45)
--- NOTE | 2018-11-15 20:04 | NUR ---
Sent a page out to Dr. Alcantara regarding changing Zofran to Po and alerting him regarding CPM issue.
--- NOTE | 2018-11-15 20:35 | NUR ---
Paged Dr. Alcantara service again for orders, no call back from 1999 page to environmental permitting specialist service.
[2018-11-15] MEDS: diphenhydrAMINE 25mg capsule PO PRN (20:47)
[2018-11-15] MEDS: sennosides 8.6mg tablet PO SCH (20:48)
[2018-11-15] MEDS ORDERED: ondansetron 4mg rapidly disintigrating tab PO PRN (21:55)
[2018-11-15 22:00] VITALS: BP 135/70
[2018-11-15] MEDS ORDERED: ipratropium 0.5 MG/2.5ML nebule NEB PRN (22:00)
--- NOTE | 2018-11-15 22:00 | NUR ---
The answering service had Dr. Redd call me regarding orders on patient so he gave me medication orders at this time.
[2018-11-16] MEDS: oxyCODONE/APAP 10/325mg tablet PO PRN ×3 (01:57→12:48)
[2018-11-16 06:00] VITALS: BP 120/73
--- NOTE | 2018-11-16 06:11 | NUR ---
RECEIVED REPORT FROM TIBURCIO GILL
--- NOTE | 2018-11-16 06:21 | NUR ---
Problems reprioritized. Patient report given, questions answered & plan of care reviewed with TIBURCIO Hoover.
[2018-11-16] MEDS: levoTHYROXINE 25mcg tablet PO SCH (07:36)
[2018-11-16] MEDS: gabapentin 300mg capsule PO SCH (07:36)
[2018-11-16] MEDS: potassium Cl 20 mEq SR tablet PO SCH (07:38)
[2018-11-16] MEDS: metFORMIN 500mg tablet PO SCH (07:38)
[2018-11-16] MEDS: celeCOXIB 100mg capsule PO SCH (07:39)
[2018-11-16] MEDS: flecainide 50mg tablet PO SCH (07:40)
[2018-11-16] MEDS: estradiol 1mg tablet PO SCH (07:40)
[2018-11-16] MEDS: atorvastatin 10mg tablet PO SCH (07:41)
[2018-11-16] MEDS: pantoprazole 40mg Tablet.DR PO SCH (07:41)
[2018-11-16] MEDS: lisinopril 2.5mg tablet PO SCH (07:42)
[2018-11-16] MEDS: enoxaparin 40mg/0.4ml syringe SQ SCH (07:43)
[2018-11-16] MEDS: furosemide 40mg tablet PO SCH (07:44)
--- NOTE | 2018-11-16 08:57 | NUR ---
gave report to amanda cody
[2018-11-16 10:00] VITALS: BP 131/65
== END 2018-11-16 16:19 | disposition home or self-care (01) | DRG 470 ==
LOC: PAS IN 08:34 → EDSTATUS 13:15 → ORTHO 4S 16:15
PROVIDERS: ADMIT Orthopaedic Surgery; ATTEND Orthopaedic Surgery
PROC: 8E0Y0CZ Robotic Assisted Procedure of Lower Extremity, Open Approach (ICD-10-PCS; 2018-11-12)
PROC: 3E0T3BZ Introduction of Anesthetic Agent into Peripheral Nerves and Plexi, Percutaneous Approach (ICD-10-PCS; 2018-11-12)
PROC: 0SRC069 Replacement of Right Knee Joint with Oxidized Zirconium on Polyethylene Synthetic Substitute, Cemented, Open Approach (ICD-10-PCS; principal; 2018-11-12 11:50)
DX: M17.11 Unilateral primary osteoarthritis, right knee (principal); D62 Acute posthemorrhagic anemia; E11.9 Type 2 diabetes mellitus without complications; G47.30 Sleep apnea, unspecified; I10 Essential (primary) hypertension; I25.10 Atherosclerotic heart disease of native coronary artery without angina pectoris; F41.9 Anxiety disorder, unspecified; Z96.652 Presence of left artificial knee joint; J44.9 Chronic obstructive pulmonary disease, unspecified; F32.9 Major depressive disorder, single episode, unspecified; Z98.51 Tubal ligation status; Z88.1 Allergy status to other antibiotic agents; Z98.891 History of uterine scar from previous surgery
CPT/HCPCS: Z7506; Z7508; 36415; 80051; 80053; 82948; 83036; 84132; 84443; 85025; 87081; 93005; 94640; 94760; 97110; 97112; 97116; 97162; 97530; A4215; A4618; A6454; A7000; C1713; C1758; C1776; C9250; G0378; J0171; J0690; J0780; J1170; J1650; J1885; J2250; J2270; J2405; J2704; J2765; J2795; J3370; J3480; J3490; J7120; Q0163

== ENCOUNTER 2018-12-24 11:46 | Outpatient (CLI) | payer OTHER ==
[~2018-12-24 11:46] MED LIST changes: +ASPI-1264 PO; +OXYC-150 PO
[2018-12-24 12:50] LABS: URINE AMPHETAMINE SCREEN NEGATIVE (Neg); URINE BARBITUATE SCREEN NEGATIVE (Neg); URINE BENZODIAZEPINES SCREEN NEGATIVE (Neg); URINE CANNABINOID SCREEN NEGATIVE (Neg); URINE COCAINE SCREEN NEGATIVE (Neg); URINE METHADONE SCREEN NEGATIVE (Neg); URINE OPIATE SCREEN POSITIVE (Neg); URINE PHENCYCLIDINE SCREEN NEGATIVE (Neg)
== END 2018-12-24 23:59 | disposition home or self-care (01) ==
LOC: LAB 11:46
PROVIDERS: ATTEND Family Medicine
DX: Z02.83 Encounter for blood-alcohol and blood-drug test (principal); I10 Essential (primary) hypertension; M17.12 Unilateral primary osteoarthritis, left knee; Z87.891 Personal history of nicotine dependence
CPT/HCPCS: 36415; 80305

== ENCOUNTER 2019-07-11 06:51 | Emergency (ER) | payer OTHER ==
[~2019-07-11] VITALS: Ht 165.1 cm; Wt 111.8 kg
[~2019-07-11 06:51] MED LIST changes: -ASPI-1264 PO
[2019-07-11 06:58] VITALS: BP 155/95
[2019-07-11] MEDS ORDERED: AMOX-422 PO (08:02)
[2019-07-11] MEDS ORDERED: amox tr/potassium clavulanate 875/125mg TAB PO ONE (08:05)
== END 2019-07-11 08:10 | disposition home or self-care (01) ==
LOC: ER 06:52 → EEVIPCON 06:52 → ER 08:10
DX: K11.20 Sialoadenitis, unspecified (principal); R22.0 Localized swelling, mass and lump, head; R51 Headache; I10 Essential (primary) hypertension; E11.9 Type 2 diabetes mellitus without complications; E03.9 Hypothyroidism, unspecified; Z90.49 Acquired absence of other specified parts of digestive tract; Z98.890 Other specified postprocedural states; Z88.1 Allergy status to other antibiotic agents; Z79.2 Long term (current) use of antibiotics; Z79.899 Other long term (current) drug therapy
CPT/HCPCS: 99283

== ENCOUNTER 2019-07-20 11:06 | Outpatient (CLI) | payer OTHER ==
[~2019-07-20 11:06] MED LIST changes: +AMOX-422 PO
[2019-07-20 12:12] LABS: HEMOGLOBIN A1C 6.2 % (4.5-6.2)
[2019-07-20 12:25] LABS: ALBUMIN 3.5 G/DL (3.4-5.0); ANION GAP 7 (8-16); BLOOD UREA NITROGEN 15 MG/DL (7-18); BUN/CREATININE RATIO 13.8 (6.6-38.0); CALCIUM 8.8 MG/DL (8.5-10.1); CHLORIDE 107 MMOL/L (99-107); CREATININE 1.09 MG/DL (0.40-0.90); GLUCOSE 109 MG/DL (70-104); POTASSIUM 3.7 MMOL/L (3.5-5.1); SODIUM 143 MMOL/L (135-145); TOTAL CARBON DIOXIDE 29.5 MMOL/L (24-32); eGFR 51 ML/MIN
== END 2019-07-20 23:59 | disposition home or self-care (01) ==
LOC: LAB 11:06
PROVIDERS: ATTEND Family Medicine
DX: I10 Essential (primary) hypertension (principal); J44.9 Chronic obstructive pulmonary disease, unspecified; E03.9 Hypothyroidism, unspecified; R73.09 Other abnormal glucose
CPT/HCPCS: 36415; 80048; 83036; 83880; 84443

== ENCOUNTER 2019-07-20 11:09 | Outpatient (CLI) | payer OTHER | END 2019-07-20 23:59 | disposition home or self-care (01) | LOC: RAD 11:09 | PROVIDERS: ATTEND Family Medicine | DX: J44.9 Chronic obstructive pulmonary disease, unspecified (principal); R06.02 Shortness of breath | CPT/HCPCS: 71046 ==

== ENCOUNTER 2019-07-22 10:06 | Outpatient (CLI) | payer OTHER ==
[~2019-07-22] VITALS: Ht 165.1 cm; Wt 116.1 kg
== END 2019-07-22 23:59 | disposition home or self-care (01) ==
LOC: RT 10:06
PROVIDERS: ATTEND Family Medicine
DX: J44.9 Chronic obstructive pulmonary disease, unspecified (principal)
CPT/HCPCS: 94010; 94727; 94729

== ENCOUNTER → 2019-12-01 | Outpatient (CLI) | payer BC ==
[~2019-12-01] MED LIST changes: -AMOX-422 PO
== END | disposition home or self-care (01) ==
LOC: RAD 09:01
PROVIDERS: ATTEND Orthopaedic Surgery
DX: M25.461 Effusion, right knee (principal); M85.88 Other specified disorders of bone density and structure, other site
CPT/HCPCS: 73564

== ENCOUNTER → 2019-12-01 | Outpatient (CLI) | payer BC ==
[2019-12-01 10:07] LABS: CLARITY,URINE SLIGHTLY CLOUDY (Clear); COLOR,URINE STRAW (Yellow); GLUCOSE, URINE NEGATIVE (Neg); KETONES,URINE NEGATIVE (Neg); LEUKOCYTE ESTERASE ,URINE NEGATIVE (Neg); NITRITES, URINE NEGATIVE (Neg); OCCULT BLOOD,URINE SMALL (Neg); PH,URINE 5.5 (4.8-8.0); PROTEIN,URINE NEGATIVE (Neg); UA COLLECTION TYPE CLN CATCH MIDSTREAM; UROBILINOGEN,URINE 0.2 E.U/dL (0.2-1.0)
[2019-12-01 10:07] LABS: BASOPHILS # (AUTO) 0.1 X10'3 (0-0.2); BASOPHILS % (AUTO) 0.8 % (0-1); EOSINOPHILS # (AUTO) 0.1 X10'3 (0-0.9); EOSINOPHILS % (AUTO) 1.4 % (0-6); HEMATOCRIT 35.5 % (35.0-45.0); HEMOGLOBIN 11.2 g/dl (12.0-16.0); LYMPHOCYTES # (AUTO) 2.2 X10'3 (1.1-4.8); MEAN CORPUSCULAR HEMOGLOBIN 23.3 PG (27.0-31.0); MEAN CORPUSCULAR HGB CONC 31.5 g/dL (33.0-36.5); MEAN CORPUSCULAR VOLUME 74.2 FL (78-98); MEAN PLATELET VOLUME 8.4 FL (7.4-10.4); MONOCYTES # (AUTO) 0.3 X10'3 (0-0.9); MONOCYTES % (AUTO) 4.2 % (2-12); NEUTROPHILS # (AUTO) 5.3 X10'3 (1.8-7.7); NEUTROPHILS % (AUTO) 66.6 % (42-75); PLATELET COUNT 423 X10'3 (140-440); RED BLOOD COUNT 4.78 X10'6 (4.20-5.60); RED CELL DISTRIBUTION WIDTH 16.5 % (11.5-14.5)
[2019-12-01 10:15] LABS: HEMOGLOBIN A1C 6.4 % (4.5-6.2)
[2019-12-01 10:26] LABS: SQUAMOUS EPITHELIAL CELL,UR FEW /LPF (FEW)
[2019-12-01 10:27] LABS: BACTERIA,URINE FEW /HPF (Neg); MUCUS STRANDS FEW /LPF (Neg); RBC,URINE 0-2 /HPF (0-2); WBC,URINE 0-4 /HPF (0-4)
[2019-12-01 10:29] LABS: ALBUMIN 3.8 G/DL (3.4-5.0); ALBUMIN/GLOBULIN RATIO 0.9 (1.1-1.5); ALKALINE PHOSPHATASE 91 IU/L (46-116); ANION GAP 10 (8-16); ASPARTATE AMINO TRANSFERASE 8 U/L (10-37); BILIRUBIN,TOTAL 0.6 MG/DL (0.1-1.0); BLOOD UREA NITROGEN 16 MG/DL (7-18); CALCIUM 9.5 MG/DL (8.5-10.1); CHLORIDE 103 MMOL/L (99-107); CHOL/HDL RATIO 2.5 (0.00-4.99); CHOLESTEROL 119 MG/DL (0-200); GLUCOSE 101 MG/DL (70-104); HDL CHOLESTEROL 47 MG/DL (35-60); LDL CHOLESTEROL 55 MG/DL (50-100); POTASSIUM 3.8 MMOL/L (3.5-5.1); SODIUM 142 MMOL/L (135-145); TOTAL CARBON DIOXIDE 28.9 MMOL/L (24-32); TOTAL PROTEIN 8.1 G/DL (6.4-8.2); TRIGLYCERIDES 118 MG/DL (20-135); eGFR 56 ML/MIN
[2019-12-01 11:05] LABS: ALANINE AMINOTRANSFERASE 21 U/L (12-78)
[2019-12-02 12:05] LABS: MICROALB/CRT, RATIO <15 mg/g creat (0-29)
== END | disposition home or self-care (01) ==
LOC: LAB 09:05
PROVIDERS: ATTEND Family Medicine
DX: Z00.00 Encounter for general adult medical examination without abnormal findings (principal)
CPT/HCPCS: 36415; 80053; 80061; 81001; 82043; 82306; 82570; 83036; 84443; 85025

== ENCOUNTER 2019-12-21 10:26 | Outpatient (CLI) | payer BC ==
[2019-12-21 11:29] LABS: BASOPHILS # (AUTO) 0.1 X10'3 (0-0.2); BASOPHILS % (AUTO) 0.9 % (0-1); EOSINOPHILS # (AUTO) 0.1 X10'3 (0-0.9); EOSINOPHILS % (AUTO) 1.2 % (0-6); HEMATOCRIT 33.6 % (35.0-45.0); HEMOGLOBIN 10.7 g/dl (12.0-16.0); LYMPHOCYTES # (AUTO) 2.2 X10'3 (1.1-4.8); LYMPHOCYTES % (AUTO) 27.3 % (21-51); MEAN CORPUSCULAR HEMOGLOBIN 23.1 PG (27.0-31.0); MEAN CORPUSCULAR VOLUME 72.3 FL (78-98); MEAN PLATELET VOLUME 8.4 FL (7.4-10.4); MONOCYTES # (AUTO) 0.3 X10'3 (0-0.9); MONOCYTES % (AUTO) 4.2 % (2-12); NEUTROPHILS # (AUTO) 5.2 X10'3 (1.8-7.7); NEUTROPHILS % (AUTO) 66.4 % (42-75); PLATELET COUNT 445 X10'3 (140-440); RED BLOOD COUNT 4.65 X10'6 (4.20-5.60); RED CELL DISTRIBUTION WIDTH 16.8 % (11.5-14.5); WHITE BLOOD COUNT 7.9 X10'3 (4.5-11.0)
[2019-12-21 11:32] LABS: % IRON SATURATION 6 % (11-46); IRON 24 UG/DL (49-151); TOTAL IRON BINDING CAPACITY 388 UG/DL (259-388)
[2019-12-21 11:54] LABS: ALANINE AMINOTRANSFERASE 19 U/L (12-78); ALBUMIN 3.8 G/DL (3.4-5.0); ALKALINE PHOSPHATASE 91 IU/L (46-116); ANION GAP 9 (8-16); ASPARTATE AMINO TRANSFERASE 21 U/L (10-37); BILIRUBIN,TOTAL 0.6 MG/DL (0.1-1.0); BLOOD UREA NITROGEN 16 MG/DL (7-18); BUN/CREATININE RATIO 16.7 (6.6-38.0); CALCIUM 9.4 MG/DL (8.5-10.1); CHLORIDE 105 MMOL/L (99-107); CHOL/HDL RATIO 2.5 (0.00-4.99); CHOLESTEROL 108 MG/DL (0-200); CREATININE 0.96 MG/DL (0.40-0.90); GLUCOSE 107 MG/DL (70-104); HDL CHOLESTEROL 44 MG/DL (35-60); LDL CHOLESTEROL 56 MG/DL (50-100); POTASSIUM 4.6 MMOL/L (3.5-5.1); SODIUM 142 MMOL/L (135-145); TOTAL CARBON DIOXIDE 27.6 MMOL/L (24-32); TOTAL PROTEIN 7.7 G/DL (6.4-8.2); TRIGLYCERIDES 71 MG/DL (20-135); eGFR 59 ML/MIN
[2019-12-21 12:09] LABS: FERRITIN 6 NG/ML (8-252)
== END 2019-12-21 23:59 | disposition home or self-care (01) ==
LOC: LAB 10:26
PROVIDERS: ATTEND Family Medicine
DX: D64.9 Anemia, unspecified (principal); Z00.00 Encounter for general adult medical examination without abnormal findings
CPT/HCPCS: 36415; 80053; 80061; 82607; 82728; 82746; 83540; 83550; 84443; 85025

== ENCOUNTER 2020-07-20 15:02 | Outpatient (CLI) | payer BC ==
[2020-07-20 15:52] LABS: ALBUMIN 3.5 G/DL (3.4-5.0); ANION GAP 9 (8-16); BLOOD UREA NITROGEN 15 MG/DL (7-18); CALCIUM 8.7 MG/DL (8.5-10.1); CHLORIDE 107 MMOL/L (99-107); GLUCOSE 109 MG/DL (70-104); POTASSIUM 4.3 MMOL/L (3.5-5.1); SODIUM 143 MMOL/L (135-145); TOTAL CARBON DIOXIDE 27.5 MMOL/L (24-32); eGFR 56 ML/MIN
== END 2020-07-20 23:59 | disposition home or self-care (01) ==
LOC: LAB 15:02
PROVIDERS: ATTEND Nurse Practitioner Family
DX: R06.02 Shortness of breath (principal)
CPT/HCPCS: 36415; 80048; 83880

== ENCOUNTER → 2020-07-25 | Outpatient (CLI) | payer BC | END | disposition home or self-care (01) | LOC: CARD DIAG 13:33 | PROVIDERS: ATTEND Internal Medicine Cardiovascular Disease | DX: I08.0 Rheumatic disorders of both mitral and aortic valves (principal); I25.10 Atherosclerotic heart disease of native coronary artery without angina pectoris; I10 Essential (primary) hypertension | CPT/HCPCS: 93306 ==

== ENCOUNTER 2020-07-26 08:53 | Outpatient (CLI) | payer BC ==
[2020-07-26] VITALS (8 sets, daily range): BP systolic 107–121; BP diastolic 62–67
[~2020-07-26] VITALS: Ht 165.1 cm; Wt 104.5 kg
[2020-07-26] MEDS ORDERED: nitroGLYCERIN 0.4mg SUBLingual tab SL PRN (09:45)
[2020-07-26] MEDS ORDERED: aminophylline 250mg/10ml inj. IV PRN (09:45)
[2020-07-26] MEDS ORDERED: regadenoson 0.4mg/5ml syringe IV ONE (09:45)
[2020-07-26] MEDS ORDERED: normal saline 500ml IV soln 500 ML IV ONE (09:45)
== END 2020-07-26 23:59 | disposition home or self-care (01) ==
LOC: RAD 08:53
PROVIDERS: ATTEND Internal Medicine Cardiovascular Disease
DX: I25.10 Atherosclerotic heart disease of native coronary artery without angina pectoris (principal); I10 Essential (primary) hypertension; I47.1 Supraventricular tachycardia
CPT/HCPCS: 78452; 93017; A9500; J0280; J2785; J7040

== ENCOUNTER 2020-09-16 06:56 | Outpatient (CLI) | payer BC ==
[~2020-09-16 06:56] MED LIST changes: +LISI2.5T14 PO; -LISI2.5T2 PO
[2020-09-16 08:08] LABS: HEMOGLOBIN A1C 6.3 % (4.5-6.2)
== END 2020-09-16 23:59 | disposition home or self-care (01) ==
LOC: LAB 06:56
PROVIDERS: ATTEND Family Medicine
DX: R73.09 Other abnormal glucose (principal); E83.52 Hypercalcemia; E03.9 Hypothyroidism, unspecified
CPT/HCPCS: 36415; 82306; 83036; 84443

== ENCOUNTER 2020-11-08 13:31 | Outpatient (CLI) | payer BC ==
[2020-11-08 14:54] LABS: URINE AMPHETAMINE SCREEN NEGATIVE (Neg); URINE BARBITUATE SCREEN NEGATIVE (Neg); URINE BENZODIAZEPINES SCREEN NEGATIVE (Neg); URINE CANNABINOID SCREEN NEGATIVE (Neg); URINE COCAINE SCREEN NEGATIVE (Neg); URINE METHADONE SCREEN NEGATIVE (Neg); URINE OPIATE SCREEN NEGATIVE (Neg); URINE PHENCYCLIDINE SCREEN NEGATIVE (Neg)
== END 2020-11-08 23:59 | disposition home or self-care (01) ==
LOC: LAB 13:31
PROVIDERS: ATTEND Family Medicine
DX: Z02.83 Encounter for blood-alcohol and blood-drug test (principal)
CPT/HCPCS: 80305

== ENCOUNTER 2021-04-17 11:14 | Outpatient (CLI) | payer BC ==
[~2021-04-17 11:14] MED LIST changes: +POTA-207 PO; -POTA20TA19 PO
[2021-04-17 12:40] LABS: CHOL/HDL RATIO 2.1 (0.00-4.99); CHOLESTEROL 127 MG/DL (0-200); HDL CHOLESTEROL 60 MG/DL (35-60); LDL CHOLESTEROL 53 MG/DL (50-100); TRIGLYCERIDES 128 MG/DL (20-135)
[2021-04-17 12:55] LABS: HEMOGLOBIN A1C 6.6 % (4.5-6.2)
== END 2021-04-17 23:59 | disposition home or self-care (01) ==
LOC: LAB 11:14
PROVIDERS: ATTEND Family Medicine
DX: E78.5 Hyperlipidemia, unspecified (principal); E03.9 Hypothyroidism, unspecified; E11.9 Type 2 diabetes mellitus without complications
CPT/HCPCS: 36415; 80061; 83036; 84443

== ENCOUNTER 2021-04-30 16:47 | Emergency (ER) | payer BC ==
[~2021-04-30] VITALS: Ht 165.1 cm; Wt 113.6 kg
--- NOTE | 2021-04-30 17:08 | NUR ---
Pt c/o dyspnea, lungs diminished, 97% RA. No need for O2 at this time.
[2021-04-30 17:12] LABS: BASOPHILS # (AUTO) 0.1 X10'3 (0-0.2); BASOPHILS % (AUTO) 0.8 % (0-1); EOSINOPHILS # (AUTO) 0.1 X10'3 (0-0.9); HEMOGLOBIN 10.1 g/dl (12.0-16.0); LYMPHOCYTES # (AUTO) 2.5 X10'3 (1.1-4.8); LYMPHOCYTES % (AUTO) 26.7 % (21-51); MEAN CORPUSCULAR HEMOGLOBIN 21.3 PG (27.0-31.0); MEAN CORPUSCULAR HGB CONC 31.6 g/dL (33.0-36.5); MEAN CORPUSCULAR VOLUME 67.5 FL (78-98); MEAN PLATELET VOLUME 7.7 FL (7.4-10.4); MONOCYTES # (AUTO) 0.6 X10'3 (0-0.9); MONOCYTES % (AUTO) 6.3 % (2-12); NEUTROPHILS # (AUTO) 6.1 X10'3 (1.8-7.7); NEUTROPHILS % (AUTO) 65.2 % (42-75); PLATELET COUNT 415 X10'3 (140-440); RED BLOOD COUNT 4.74 X10'6 (4.20-5.60); RED CELL DISTRIBUTION WIDTH 20.3 % (11.5-14.5); WHITE BLOOD COUNT 9.4 X10'3 (4.5-11.0)
[2021-04-30 17:23] LABS: ALANINE AMINOTRANSFERASE 26 U/L (12-78); ALBUMIN 3.5 G/DL (3.4-5.0); ALBUMIN/GLOBULIN RATIO 0.8 (1.1-1.5); ALKALINE PHOSPHATASE 94 IU/L (46-116); ANION GAP 13 (8-16); ASPARTATE AMINO TRANSFERASE 11 U/L (10-37); BILIRUBIN,TOTAL 0.4 MG/DL (0.1-1.0); BLOOD UREA NITROGEN 11 MG/DL (7-18); BUN/CREATININE RATIO 11.6 (6.6-38.0); CALCIUM 9.1 MG/DL (8.5-10.1); CHLORIDE 106 MMOL/L (99-107); CREATININE 0.95 MG/DL (0.40-0.90); GLUCOSE 129 MG/DL (70-104); POTASSIUM 3.9 MMOL/L (3.5-5.1); SODIUM 145 MMOL/L (135-145); TOTAL CARBON DIOXIDE 26.2 MMOL/L (24-32); TOTAL PROTEIN 7.7 G/DL (6.4-8.2); eGFR 60 ML/MIN
[2021-04-30] MEDS ORDERED: iohexol 350MG/ML 100ml bottle IV ONE ×2 (17:32→17:34)
[2021-04-30 17:55] LABS: ANISOCYTOSIS 3+; MICROCYTOSIS 2+; PLATELET ESTIMATE NORMAL
[2021-04-30 17:56] LABS: ELLIPTOCYTES 1+
[2021-04-30 17:57] LABS: SCHISTOCYTES FEW
[2021-04-30 19:40] VITALS: BP 130/69
== END 2021-04-30 19:42 | disposition home or self-care (01) ==
LOC: ER 16:48 → EEVIPCON 16:48 → ER 19:42
DX: R06.00 Dyspnea, unspecified (principal); R07.9 Chest pain, unspecified; R00.0 Tachycardia, unspecified; I11.9 Hypertensive heart disease without heart failure; E78.00 Pure hypercholesterolemia, unspecified; E03.9 Hypothyroidism, unspecified; E11.9 Type 2 diabetes mellitus without complications; F32.9 Major depressive disorder, single episode, unspecified; Z88.1 Allergy status to other antibiotic agents; Z79.899 Other long term (current) drug therapy
CPT/HCPCS: 36415; 71045; 71275; 80053; 83880; 84484; 85008; 85025; 93005; 99285; Q9967

== ENCOUNTER 2021-08-01 06:47 | Outpatient (CLI) | payer BC ==
[~2021-08-01] VITALS: Ht 165.1 cm; Wt 112.5 kg
[2021-08-01] MEDS ORDERED: regadenoson 0.4mg/5ml syringe IV ONE (07:55)
[2021-08-01] MEDS ORDERED: nitroGLYCERIN 0.4mg SUBLingual tab SL PRN (07:55)
[2021-08-01] MEDS ORDERED: normal saline 500ml IV soln 500 ML IV SCH (07:55)
[2021-08-01] MEDS ORDERED: aminophylline 500mg/20ml vial IV PRN (08:00)
[2021-08-01 08:29] VITALS: BP 119/66
[2021-08-01 08:42] VITALS: BP 124/60
[2021-08-01 08:43] VITALS: BP 122/66
[2021-08-01 08:44] VITALS: BP 124/69
[2021-08-01 08:45] VITALS: BP 116/65
[2021-08-01 08:46] VITALS: BP 113/63
== END 2021-08-01 23:59 | disposition home or self-care (01) ==
LOC: RAD 06:47
PROVIDERS: ATTEND Internal Medicine Cardiovascular Disease
DX: I25.10 Atherosclerotic heart disease of native coronary artery without angina pectoris (principal)
CPT/HCPCS: 78452; 93017; A9500; J0280; J2785; J7040

== ENCOUNTER 2021-09-15 06:58 | Outpatient (CLI) | payer BC | END 2021-09-15 23:59 | disposition home or self-care (01) | LOC: RAD 06:58 | PROVIDERS: ATTEND Family Medicine | DX: M25.562 Pain in left knee (principal); Z96.652 Presence of left artificial knee joint | CPT/HCPCS: 73564 ==

== ENCOUNTER 2021-10-20 08:14 | Emergency (ER) | payer BC ==
[~2021-10-20] VITALS: Ht 162.6 cm; Wt 105.0 kg
[2021-10-20] MEDS ORDERED: ketorolac trometh. 30mg/ml inj. IM ONE (08:40)
[2021-10-20 09:39] VITALS: BP 111/76
[2021-10-20] MEDS ORDERED: HYDROcodone/acetaminophen 5mg/325mg tablet PO ONE (16:50)
== END 2021-10-20 09:41 | disposition home or self-care (01) ==
LOC: EEVIPCON 08:15 → ER 08:15
DX: R07.81 Pleurodynia (principal); I10 Essential (primary) hypertension; E78.00 Pure hypercholesterolemia, unspecified; F32.A Depression, unspecified; Z95.1 Presence of aortocoronary bypass graft; Z98.890 Other specified postprocedural states; Z88.1 Allergy status to other antibiotic agents; Z79.899 Other long term (current) drug therapy; Z88.8 Allergy status to other drugs, medicaments and biological substances; Z79.84 Long term (current) use of oral hypoglycemic drugs
CPT/HCPCS: 71046; 96372; 99284; J1885

== ENCOUNTER 2021-12-05 12:48 | Outpatient (CLI) | payer BC ==
[2021-12-05 14:12] LABS: URINE AMPHETAMINE SCREEN NEGATIVE (Neg); URINE BARBITUATE SCREEN NEGATIVE (Neg); URINE BENZODIAZEPINES SCREEN NEGATIVE (Neg); URINE CANNABINOID SCREEN NEGATIVE (Neg); URINE COCAINE SCREEN NEGATIVE (Neg); URINE METHADONE SCREEN NEGATIVE (Neg); URINE OPIATE SCREEN NEGATIVE (Neg); URINE PHENCYCLIDINE SCREEN NEGATIVE (Neg)
== END 2021-12-05 23:59 | disposition home or self-care (01) ==
LOC: LAB 12:48
PROVIDERS: ATTEND Family Medicine
DX: Z51.81 Encounter for therapeutic drug level monitoring (principal)
CPT/HCPCS: 36415; 80305

== ENCOUNTER 2022-03-26 20:26 | Emergency (ER) | payer BC ==
[~2022-03-26] VITALS: Ht 165.1 cm; Wt 98.0 kg
[2022-03-26] MEDS ORDERED: ketorolac trometh inj. 60 MG/2 ML VIAL IM ONE (21:15)
[2022-03-26] MEDS ORDERED: HYDROcodone/acetaminophen 10/325mg tab PO ONE (21:15)
[2022-03-26 21:19] VITALS: BP 119/68
[2022-03-26] MEDS ORDERED: IBUP-1986 PO (21:55)
[2022-03-26] MEDS ORDERED: HYDR-3972 PO (21:55)
== END 2022-03-26 22:25 | disposition home or self-care (01) ==
LOC: ER 20:27
DX: S93.402A Sprain of unspecified ligament of left ankle, initial encounter (principal); I10 Essential (primary) hypertension; E78.00 Pure hypercholesterolemia, unspecified; K21.9 Gastro-esophageal reflux disease without esophagitis; E03.9 Hypothyroidism, unspecified; E11.9 Type 2 diabetes mellitus without complications; M19.90 Unspecified osteoarthritis, unspecified site; Z88.1 Allergy status to other antibiotic agents; Z90.49 Acquired absence of other specified parts of digestive tract; Z98.890 Other specified postprocedural states; Z98.51 Tubal ligation status; X50.1XXA Overexertion from prolonged static or awkward postures, initial encounter; Y93.89 Activity, other specified; Y92.89 Other specified places as the place of occurrence of the external cause; Y99.8 Other external cause status
CPT/HCPCS: 73610; 96372; 99283; J1885; L4360; A6449

== ENCOUNTER 2022-04-18 08:31 | Outpatient (CLI) | payer BC ==
[~2022-04-18 08:31] MED LIST changes: +IBUP-1986 PO
[2022-04-18 09:00] LABS: BASOPHILS # (AUTO) 0.1 X10'3 (0-0.2); BASOPHILS % (AUTO) 1.4 % (0-1); EOSINOPHILS # (AUTO) 0.1 X10'3 (0-0.9); EOSINOPHILS % (AUTO) 1.9 % (0-6); HEMATOCRIT 33.8 % (35.0-45.0); HEMOGLOBIN 10.3 g/dl (12.0-16.0); LYMPHOCYTES # (AUTO) 1.8 X10'3 (1.1-4.8); LYMPHOCYTES % (AUTO) 27.8 % (21-51); MEAN CORPUSCULAR HEMOGLOBIN 21.2 PG (27.0-31.0); MEAN CORPUSCULAR HGB CONC 30.5 g/dL (33.0-36.5); MEAN CORPUSCULAR VOLUME 69.5 FL (78-98); MEAN PLATELET VOLUME 7.8 FL (7.4-10.4); MONOCYTES # (AUTO) 0.3 X10'3 (0-0.9); MONOCYTES % (AUTO) 4.6 % (2-12); NEUTROPHILS # (AUTO) 4.1 X10'3 (1.8-7.7); NEUTROPHILS % (AUTO) 64.3 % (42-75); PLATELET COUNT 382 X10'3 (140-440); RED BLOOD COUNT 4.87 X10'6 (4.20-5.60); RED CELL DISTRIBUTION WIDTH 18.7 % (11.5-14.5); WHITE BLOOD COUNT 6.4 X10'3 (4.5-11.0)
[2022-04-18 09:09] LABS: HEMOGLOBIN A1C 5.9 % (4.5-6.2)
[2022-04-18 09:19] LABS: ALANINE AMINOTRANSFERASE 16 U/L (12-78); ALBUMIN 3.4 G/DL (3.4-5.0); ALBUMIN/GLOBULIN RATIO 0.9 (1.1-1.5); ALKALINE PHOSPHATASE 84 IU/L (46-116); ANION GAP 8 (8-16); ASPARTATE AMINO TRANSFERASE 11 U/L (10-37); BILIRUBIN,TOTAL 0.6 MG/DL (0.1-1.0); BLOOD UREA NITROGEN 13 MG/DL (7-18); BUN/CREATININE RATIO 15.7 (6.6-38.0); CALCIUM 8.8 MG/DL (8.5-10.1); CHLORIDE 108 MMOL/L (99-107); CHOL/HDL RATIO 2.1 (0.00-4.99); CHOLESTEROL 126 MG/DL (0-200); CREATININE 0.83 MG/DL (0.40-0.90); GLUCOSE 101 MG/DL (70-104); HDL CHOLESTEROL 59 MG/DL (35-60); LDL CHOLESTEROL 51 MG/DL (50-100); POTASSIUM 4.1 MMOL/L (3.5-5.1); SODIUM 143 MMOL/L (135-145); TOTAL CARBON DIOXIDE 27.4 MMOL/L (24-32); TOTAL PROTEIN 7.3 G/DL (6.4-8.2); TRIGLYCERIDES 87 MG/DL (20-135); eGFR 69 ML/MIN
[2022-04-18 09:20] LABS: CLARITY,URINE CLEAR (Clear); COLOR,URINE YELLOW (Yellow); GLUCOSE, URINE >=1000 mg/dl (Neg); KETONES,URINE NEGATIVE (Neg); LEUKOCYTE ESTERASE ,URINE NEGATIVE (Neg); NITRITES, URINE NEGATIVE (Neg); OCCULT BLOOD,URINE SMALL (Neg); PH,URINE 5.5 (4.8-8.0); PROTEIN,URINE NEGATIVE (Neg); UROBILINOGEN,URINE 0.2 E.U/dL (0.2-1.0)
[2022-04-18 09:22] LABS: UA COLLECTION TYPE CLN CATCH MIDSTREAM
[2022-04-18 09:33] LABS: BACTERIA,URINE NONE SEEN /HPF (Neg); RBC,URINE NONE SEEN /HPF (0-2); SQUAMOUS EPITHELIAL CELL,UR FEW /LPF (FEW); WBC,URINE NONE SEEN /HPF (0-4)
[2022-04-18 09:45] LABS: PLATELET ESTIMATE NORMAL
[2022-04-18 09:46] LABS: ANISOCYTOSIS 2+; ELLIPTOCYTES 1+; MICROCYTOSIS 2+; POIKILOCYTOSIS 1+
== END 2022-04-18 23:59 | disposition home or self-care (01) ==
LOC: RAD 08:31
PROVIDERS: ATTEND Family Medicine
DX: Z00.00 Encounter for general adult medical examination without abnormal findings (principal)
CPT/HCPCS: 36415; 80053; 80061; 81001; 82043; 82570; 83036; 84443; 85008; 85025

== ENCOUNTER 2022-06-25 08:55 | Outpatient (CLI) | payer BC ==
[2022-06-25 09:51] LABS: HEMOGLOBIN A1C 6.2 % (4.5-6.2)
[2022-06-25 09:55] LABS: ALANINE AMINOTRANSFERASE 21 U/L (12-78); ALBUMIN 3.6 G/DL (3.4-5.0); ALBUMIN/GLOBULIN RATIO 0.9 (1.1-1.5); ALKALINE PHOSPHATASE 90 IU/L (46-116); ANION GAP 7 (8-16); ASPARTATE AMINO TRANSFERASE 15 U/L (10-37); BILIRUBIN,TOTAL 0.5 MG/DL (0.1-1.0); BLOOD UREA NITROGEN 14 MG/DL (7-18); BUN/CREATININE RATIO 15.6 (10.0-20.0); CALCIUM 9.3 MG/DL (8.5-10.1); CHLORIDE 106 MMOL/L (99-107); CHOL/HDL RATIO 2.2 (0.00-4.99); CHOLESTEROL 119 MG/DL (0-200); GLUCOSE 103 MG/DL (70-104); HDL CHOLESTEROL 53 MG/DL (35-60); LDL CHOLESTEROL 53 MG/DL (50-100); POTASSIUM 4.2 MMOL/L (3.5-5.1); SODIUM 140 MMOL/L (135-145); TOTAL CARBON DIOXIDE 27.1 MMOL/L (24-32); TOTAL PROTEIN 7.7 G/DL (6.4-8.2); TRIGLYCERIDES 73 MG/DL (20-135); eGFR 63 ML/MIN
[2022-06-25 09:58] LABS: BASOPHILS # (AUTO) 0.1 X10'3 (0-0.2); BASOPHILS % (AUTO) 1.3 % (0-1); EOSINOPHILS # (AUTO) 0.1 X10'3 (0-0.9); EOSINOPHILS % (AUTO) 1.4 % (0-6); HEMATOCRIT 35.7 % (35.0-45.0); HEMOGLOBIN 11.3 g/dl (12.0-16.0); MEAN CORPUSCULAR HEMOGLOBIN 21.8 PG (27.0-31.0); MEAN CORPUSCULAR HGB CONC 31.8 g/dL (33.0-36.5); MEAN CORPUSCULAR VOLUME 68.6 FL (78-98); MONOCYTES # (AUTO) 0.3 X10'3 (0-0.9); MONOCYTES % (AUTO) 4.3 % (2-12); NEUTROPHILS # (AUTO) 4.2 X10'3 (1.8-7.7); PLATELET COUNT 413 X10'3 (140-440); RED CELL DISTRIBUTION WIDTH 19.5 % (11.5-14.5); WHITE BLOOD COUNT 6.7 X10'3 (4.5-11.0)
[2022-06-25 10:27] LABS: ANISOCYTOSIS 2+; MICROCYTOSIS 2+; PLATELET ESTIMATE NORMAL
[2022-06-25 10:28] LABS: ELLIPTOCYTES FEW
[2022-06-25 10:29] LABS: LARGE PLATELETS FEW
== END 2022-06-25 23:59 | disposition home or self-care (01) ==
LOC: LAB 08:55
PROVIDERS: ATTEND Family Medicine
DX: E78.2 Mixed hyperlipidemia (principal); I10 Essential (primary) hypertension; R79.89 Other specified abnormal findings of blood chemistry; R73.09 Other abnormal glucose; E03.9 Hypothyroidism, unspecified; E83.52 Hypercalcemia; R77.9 Abnormality of plasma protein, unspecified
CPT/HCPCS: 80053; 80061; 82043; 82306; 82570; 83036; 84443; 85008; 85025

== ENCOUNTER 2022-11-27 11:37 | Outpatient (CLI) | payer BC | END 2022-11-27 23:59 | disposition home or self-care (01) | LOC: LAB 11:37 | PROVIDERS: ATTEND Family Medicine | DX: Z03.89 Encounter for observation for other suspected diseases and conditions ruled out (principal) | CPT/HCPCS: 36415 ==

== ENCOUNTER 2023-02-09 10:11 | Inpatient (IN) | payer BC ==
[~2023-02-09] VITALS: Ht 165.1 cm; Wt 111.4 kg
[2023-02-09 10:53] LABS: BASOPHILS # (AUTO) 0.1 X10'3 (0-0.2); BASOPHILS % (AUTO) 1.2 % (0-1); EOSINOPHILS # (AUTO) 0.1 X10'3 (0-0.9); EOSINOPHILS % (AUTO) 1.7 % (0-6); HEMATOCRIT 36.6 % (35.0-45.0); HEMOGLOBIN 11.5 g/dl (12.0-16.0); LYMPHOCYTES # (AUTO) 2.1 X10'3 (1.1-4.8); LYMPHOCYTES % (AUTO) 33.5 % (21-51); MEAN CORPUSCULAR HEMOGLOBIN 22.5 PG (27.0-31.0); MEAN CORPUSCULAR HGB CONC 31.4 g/dL (33.0-36.5); MEAN CORPUSCULAR VOLUME 71.5 FL (78-98); MEAN PLATELET VOLUME 7.9 FL (7.4-10.4); MONOCYTES # (AUTO) 0.4 X10'3 (0-0.9); MONOCYTES % (AUTO) 5.7 % (2-12); NEUTROPHILS # (AUTO) 3.7 X10'3 (1.8-7.7); NEUTROPHILS % (AUTO) 57.9 % (42-75); PLATELET COUNT 340 X10'3 (140-440); RED BLOOD COUNT 5.11 X10'6 (4.20-5.60); RED CELL DISTRIBUTION WIDTH 18.4 % (11.5-14.5); WHITE BLOOD COUNT 6.3 X10'3 (4.5-11.0)
[2023-02-09 11:14] LABS: ALANINE AMINOTRANSFERASE 36 U/L (12-78); ALBUMIN 3.5 G/DL (3.4-5.0); ALBUMIN/GLOBULIN RATIO 0.9 (1.1-1.5); ALKALINE PHOSPHATASE 81 IU/L (46-116); ANION GAP 9 (8-16); ASPARTATE AMINO TRANSFERASE 21 U/L (10-37); BILIRUBIN,TOTAL 0.8 MG/DL (0.1-1.0); BLOOD UREA NITROGEN 13 MG/DL (7-18); BUN/CREATININE RATIO 12.7 (10.0-20.0); CALCIUM 9.1 MG/DL (8.5-10.1); CHLORIDE 104 MMOL/L (99-107); CREATININE 1.02 MG/DL (0.40-0.90); GLUCOSE 111 MG/DL (70-104); POTASSIUM 3.8 MMOL/L (3.5-5.1); SODIUM 141 MMOL/L (135-145); TOTAL CARBON DIOXIDE 28.4 MMOL/L (24-32); TOTAL PROTEIN 7.4 G/DL (6.4-8.2); eCRCL 50 ML/MIN; eGFR 55 ML/MIN
[2023-02-09 11:22] LABS: PRO BRAIN NATRIURETIC PEPTIDE < 30 PG/ML (0-125)
[2023-02-09] MEDS ORDERED: acetaminophen 325mg tablet PO ONE (11:55)
[2023-02-09 12:58] LABS: BILIRUBIN,URINE NEGATIVE (Neg); CLARITY,URINE CLEAR (Clear); COLOR,URINE YELLOW (Yellow); GLUCOSE, URINE >=1000 mg/dl (Neg); KETONES,URINE NEGATIVE (Neg); LEUKOCYTE ESTERASE ,URINE NEGATIVE (Neg); NITRITES, URINE NEGATIVE (Neg); OCCULT BLOOD,URINE TRACE-INTACT (Neg); PROTEIN,URINE NEGATIVE (Neg); UA COLLECTION TYPE CLN CATCH MIDSTREAM; UROBILINOGEN,URINE 0.2 E.U/dL (0.2-1.0)
[2023-02-09 13:05] LABS: BACTERIA,URINE FEW /HPF (Neg); MUCUS STRANDS FEW /LPF (Neg); RBC,URINE 0-2 /HPF (0-2); SQUAMOUS EPITHELIAL CELL,UR FEW /LPF (FEW); WBC,URINE 0-4 /HPF (0-4)
[2023-02-09] MEDS ORDERED: aspirin 81mg tab.chew PO ONE (15:25)
[2023-02-09] MEDS ORDERED: MESSAGE TO PHARMACY PO ONE (16:05)
[2023-02-09] MEDS ORDERED: insulin Lispro (HumaLOG) vial - multi-dose SQ SCH (16:05)
[2023-02-09] MEDS ORDERED: PERFLUTREN PROTEIN-A MICROSPHR (Optison) 0.22 MG/ML 3ML VIAL IV ONE (16:05)
[2023-02-09] MEDS ORDERED: magnesium 4gm in 100ml NS 100 ML IV PRN (16:05)
[2023-02-09] MEDS ORDERED: potassium Cl 40MEQ/1/2NS 520ml 520 ML IV PRN (16:05)
[2023-02-09] MEDS ORDERED: magnesium 2GM in 50ml NS 50 ML IV PRN (16:05)
[2023-02-09] MEDS ORDERED: magnesium Cl slow-release 64mg tablet PO PRN (16:05)
[2023-02-09] MEDS ORDERED: glucagon, human recombinant 1mg kit SUBCUT PRN (16:05)
[2023-02-09] MEDS ORDERED: potassium Cl 20 mEq SR tablet PO PRN ×2 (16:05)
[2023-02-09] MEDS ORDERED: diphenhydrAMINE 25mg capsule PO PRN (16:05)
[2023-02-09] MEDS ORDERED: DEXTROSE 15 GM of carb/4 tabs (each vial/BOTTLE has 4 tablets) PO PRN ×2 (16:05)
[2023-02-09] MEDS ORDERED: metoprolol tartrate 1mg/ml inj IV PRN (16:05)
[2023-02-09] MEDS ORDERED: HYDROcodone/acetaminophen 10/325mg tab PO PRN (16:05)
[2023-02-09] MEDS ORDERED: ondansetron/PF 4mg/2ml inj IV PRN (16:05)
[2023-02-09] MEDS ORDERED: nitroGLYCERIN 0.4mg SUBLingual tab SL PRN ×2 (16:05)
[2023-02-09] MEDS ORDERED: acetaminophen 325mg tablet PO PRN ×2 (16:05)
[2023-02-09] MEDS ORDERED: aminophylline 250mg/10ml inj. IV PRN (16:05)
[2023-02-09] MEDS ORDERED: bisacodyl 10mg suppository rectal RC PRN (16:05)
[2023-02-09] MEDS ORDERED: HYDROcodone/acetaminophen 5mg/325mg tablet PO PRN (16:05)
[2023-02-09] MEDS ORDERED: acetaminophen 650mg rectal suppository RC PRN (16:05)
[2023-02-09] MEDS ORDERED: dextrose 50%-water 50ml dispensing syringe IV PRN ×2 (16:05)
[2023-02-09] MEDS ORDERED: mag hydrox/Alum hydrox/simeth 30ml oral suspension PO PRN (16:05)
[2023-02-09] MEDS ORDERED: magnesium hydroxide 30ml (MOM) UD suspension PO PRN (16:05)
[2023-02-09] MEDS ORDERED: regadenoson 0.4mg/5ml syringe IV PRN (16:05)
[2023-02-09] MEDS ORDERED: normal saline 1000ml 1,000 ML IV SCH (16:05)
[2023-02-09] MEDS ORDERED: iohexol 350MG/ML 100ml bottle IV ONE (16:11)
[2023-02-09 16:53] LABS: HEMOGLOBIN A1C 6.1 % (4.5-6.2)
[2023-02-09 17:00] LABS: THYROID STIMULATING HORMONE 2.44 ulU/ml (0.34-4.50)
[2023-02-09] MEDS ORDERED: MESSAGE TO NURSING PO NR (17:16)
[2023-02-09] MEDS ORDERED: DAPA10TA PO (17:53)
[2023-02-09] MEDS: docusate sod 100mg capsule PO SCH (20:00)
[2023-02-09] MEDS ORDERED: K and/or MAG REPLACEMENT MC SCH (20:00)
[2023-02-09] MEDS: heparin, porcine 5000 units/ml vial SQ SCH (20:00)
[2023-02-09 20:08] VITALS: BP 135/70; PULSE 66; RESP 18; TEMP 98; O2SAT 96
[2023-02-09 20:13] VITALS: BP 144/76; PULSE 65
[2023-02-09 20:15] VITALS: BP 131/72; PULSE 69
[2023-02-09 20:16] VITALS: BP 144/85; PULSE 77
[2023-02-09] MEDS ORDERED: ASPI-144 (20:22)
[2023-02-09] MEDS ORDERED: ALPRAZolam 0.5mg tablet PO PRN (20:45)
[2023-02-09] MEDS ORDERED: traMADol 50MG tablet PO PRN (20:45)
[2023-02-09 20:55] VITALS: RESP 18; O2SAT 98
[2023-02-09] MEDS ORDERED: insulin glargine (Lantus) pen - multi-dose SQ SCH (21:00)
[2023-02-09 22:00] VITALS: BP 112/48; PULSE 62; RESP 18; TEMP 97.2; O2SAT 94
[2023-02-10] VITALS (11 sets, daily range): BP systolic 99–143; BP diastolic 58–95; PULSE 67–100; RESP 16–18; TEMP 97.9; O2SAT 92–97
[2023-02-10] MEDS ORDERED: levoTHYROXINE 25mcg tablet PO SCH (07:00)
[2023-02-10 07:11] LABS: BASOPHILS % (AUTO) 0.9 % (0-1); EOSINOPHILS # (AUTO) 0.1 X10'3 (0-0.9); EOSINOPHILS % (AUTO) 1.7 % (0-6); HEMATOCRIT 35.4 % (35.0-45.0); HEMOGLOBIN 11.3 g/dl (12.0-16.0); LYMPHOCYTES # (AUTO) 1.8 X10'3 (1.1-4.8); LYMPHOCYTES % (AUTO) 34.7 % (21-51); MEAN CORPUSCULAR HEMOGLOBIN 22.8 PG (27.0-31.0); MEAN CORPUSCULAR VOLUME 71.1 FL (78-98); MEAN PLATELET VOLUME 8.1 FL (7.4-10.4); MONOCYTES # (AUTO) 0.3 X10'3 (0-0.9); MONOCYTES % (AUTO) 5.7 % (2-12); PLATELET COUNT 330 X10'3 (140-440); RED BLOOD COUNT 4.98 X10'6 (4.20-5.60); RED CELL DISTRIBUTION WIDTH 18.6 % (11.5-14.5); WHITE BLOOD COUNT 5.3 X10'3 (4.5-11.0)
[2023-02-10 07:15] LABS: ALANINE AMINOTRANSFERASE 33 U/L (12-78); ALBUMIN 3.1 G/DL (3.4-5.0); ALBUMIN/GLOBULIN RATIO 0.8 (1.1-1.5); ALKALINE PHOSPHATASE 77 IU/L (46-116); ANION GAP 8 (8-16); ASPARTATE AMINO TRANSFERASE 22 U/L (10-37); BILIRUBIN,TOTAL 0.6 MG/DL (0.1-1.0); BLOOD UREA NITROGEN 15 MG/DL (7-18); BUN/CREATININE RATIO 16.9 (10.0-20.0); CALCIUM 9.2 MG/DL (8.5-10.1); CHLORIDE 105 MMOL/L (99-107); CHOL/HDL RATIO 2.3 (0.00-4.99); CHOLESTEROL 143 MG/DL (0-200); CREATININE 0.89 MG/DL (0.40-0.90); GLUCOSE 106 MG/DL (70-104); HDL CHOLESTEROL 62 MG/DL (35-60); LDL CHOLESTEROL 61 MG/DL (50-100); MAGNESIUM 2.1 MG/DL (1.5-2.4); PHOSPHORUS 4.9 MG/DL (2.3-4.5); POTASSIUM 4.1 MMOL/L (3.5-5.1); SODIUM 142 MMOL/L (135-145); TRIGLYCERIDES 113 MG/DL (20-135); eCRCL 57 ML/MIN; eGFR 64 ML/MIN
[2023-02-10] MEDS ORDERED: pantoprazole 40mg Tablet.DR PO SCH (07:30)
[2023-02-10] MEDS: docusate sod 100mg capsule PO SCH (07:38)
[2023-02-10] MEDS: heparin, porcine 5000 units/ml vial SQ SCH (07:44)
[2023-02-10] MEDS ORDERED: DAPAGLIFLOZIN 10MG TABLET PO SCH (08:00)
[2023-02-10] MEDS ORDERED: atorvastatin 10mg tablet PO SCH (08:00)
[2023-02-10] MEDS ORDERED: flecainide 50mg tablet PO SCH (08:00)
[2023-02-10] MEDS ORDERED: gabapentin 300mg capsule PO SCH (08:00)
[2023-02-10] MEDS ORDERED: aspirin 325mg tablet, delayed-release (Ecotrin) PO SCH (08:00)
[2023-02-10 10:36] LABS: PLATELET ESTIMATE NORMAL
[2023-02-10 10:37] LABS: ANISOCYTOSIS 2+; HYPOCHROMASIA 1+
[2023-02-10 10:38] LABS: MICROCYTOSIS 1+
[2023-02-10] MEDS ORDERED: METF-1203 PO (13:39)
[2023-02-10] MEDS ORDERED: ASPI-1265 PO (17:47)
== END 2023-02-10 14:08 | disposition home or self-care (01) | DRG 69 ==
LOC: ER 10:12 → ED HOLD 16:13 → EEVIPCON 16:13 → PCU 3S 19:59
PROVIDERS: ADMIT Family Medicine; ATTEND Family Medicine
PROC: 4A02XM4 Measurement of Cardiac Total Activity, External Approach (ICD-10-PCS; principal; 2023-02-10)
DX: G45.9 Transient cerebral ischemic attack, unspecified (principal); Z68.41 Body mass index [BMI] 40.0-44.9, adult; I24.9 Acute ischemic heart disease, unspecified; E03.9 Hypothyroidism, unspecified; E11.9 Type 2 diabetes mellitus without complications; E66.9 Obesity, unspecified; E78.00 Pure hypercholesterolemia, unspecified; E86.0 Dehydration; E88.810 Metabolic syndrome; F41.9 Anxiety disorder, unspecified; G62.9 Polyneuropathy, unspecified; G89.29 Other chronic pain; I10 Essential (primary) hypertension; M47.812 Spondylosis without myelopathy or radiculopathy, cervical region; M50.30 Other cervical disc degeneration, unspecified cervical region; T50.905A Adverse effect of unspecified drugs, medicaments and biological substances, initial encounter; Z96.653 Presence of artificial knee joint, bilateral; Y92.89 Other specified places as the place of occurrence of the external cause; Z79.84 Long term (current) use of oral hypoglycemic drugs; Z82.49 Family history of ischemic heart disease and other diseases of the circulatory system; Z83.3 Family history of diabetes mellitus; Z87.891 Personal history of nicotine dependence; Z88.1 Allergy status to other antibiotic agents; Z79.899 Other long term (current) drug therapy; Z88.8 Allergy status to other drugs, medicaments and biological substances
CPT/HCPCS: 36415; 70450; 70496; 70498; 70551; 71045; 72141; 78452; 80053; 80061; 81001; 82948; 83036; 83735; 83880; 84100; 84443; 84484; 85008; 85025; 85651; 93005; 93017; 97116; 97161; 97530; 99285; A9500; G0378; J1815; J2785; J3490; J7030; Q9967

== ENCOUNTER 2023-04-09 08:05 | Outpatient (CLI) | payer BC ==
[~2023-04-09 08:05] MED LIST changes: +DAPA10TA PO; -ERGO500014 PO; -ESTR1TAB19 PO; -FURO-149 PO; -IBUP-1986 PO; -LISI2.5T14 PO; +METF-1203 PO; -METF500T PO; -NITR0.4T51 SL; -OXYC-150 PO; -POTA-207 PO; -PROG100C11 PO; -UMEC62.5 INH
[2023-04-09 08:54] LABS: BASOPHILS # (AUTO) 0.1 X10'3 (0-0.2); BASOPHILS % (AUTO) 1.2 % (0-1); EOSINOPHILS # (AUTO) 0.1 X10'3 (0-0.9); EOSINOPHILS % (AUTO) 2.4 % (0-6); HEMATOCRIT 36.6 % (35.0-45.0); HEMOGLOBIN 11.5 g/dl (12.0-16.0); LYMPHOCYTES # (AUTO) 2.1 X10'3 (1.1-4.8); LYMPHOCYTES % (AUTO) 34.8 % (21-51); MEAN CORPUSCULAR HEMOGLOBIN 22.4 PG (27.0-31.0); MEAN CORPUSCULAR HGB CONC 31.4 g/dL (33.0-36.5); MEAN CORPUSCULAR VOLUME 71.4 FL (78-98); MEAN PLATELET VOLUME 7.9 FL (7.4-10.4); MONOCYTES # (AUTO) 0.3 X10'3 (0-0.9); MONOCYTES % (AUTO) 5.1 % (2-12); NEUTROPHILS # (AUTO) 3.4 X10'3 (1.8-7.7); NEUTROPHILS % (AUTO) 56.5 % (42-75); PLATELET COUNT 356 X10'3 (140-440); RED BLOOD COUNT 5.13 X10'6 (4.20-5.60); RED CELL DISTRIBUTION WIDTH 18.7 % (11.5-14.5)
[2023-04-09 09:01] LABS: ALANINE AMINOTRANSFERASE 26 U/L (12-78); ALBUMIN 3.2 G/DL (3.4-5.0); ALBUMIN/GLOBULIN RATIO 0.8 (1.1-1.5); ALKALINE PHOSPHATASE 85 IU/L (46-116); ANION GAP 9 (8-16); ASPARTATE AMINO TRANSFERASE 10 U/L (10-37); BILIRUBIN,TOTAL 0.7 MG/DL (0.1-1.0); BLOOD UREA NITROGEN 9 MG/DL (7-18); BUN/CREATININE RATIO 10.2 (10.0-20.0); CALCIUM 8.5 MG/DL (8.5-10.1); CHLORIDE 108 MMOL/L (99-107); CREATININE 0.88 MG/DL (0.40-0.90); GLUCOSE 119 MG/DL (70-104); POTASSIUM 4.3 MMOL/L (3.5-5.1); SODIUM 144 MMOL/L (135-145); THYROID STIMULATING HORMONE 1.02 ulU/ml (0.34-4.50); TOTAL CARBON DIOXIDE 26.9 MMOL/L (24-32); TOTAL PROTEIN 7.1 G/DL (6.4-8.2); eGFR 65 ML/MIN
[2023-04-09 09:21] LABS: LARGE PLATELETS FEW; PLATELET ESTIMATE NORMAL
[2023-04-09 09:22] LABS: ANISOCYTOSIS 2+; MICROCYTOSIS 1+
== END 2023-04-09 23:59 | disposition home or self-care (01) ==
LOC: LAB 08:05
PROVIDERS: ATTEND Family Medicine
DX: I10 Essential (primary) hypertension (principal); E03.9 Hypothyroidism, unspecified
CPT/HCPCS: 36415; 80053; 82043; 82570; 84443; 85008; 85025

== ENCOUNTER → 2023-07-05 | Outpatient (CLI) | payer BC | END | disposition home or self-care (01) | LOC: LAB 07:28 | PROVIDERS: ATTEND Family Medicine | DX: R73.09 Other abnormal glucose (principal) | CPT/HCPCS: 36415; 83036 ==

== ENCOUNTER 2023-12-06 12:45 | Outpatient (CLI) | payer BC, MEDICARE | END 2023-12-06 23:59 | disposition home or self-care (01) | LOC: LAB 12:45 | PROVIDERS: ATTEND Family Medicine | DX: R73.09 Other abnormal glucose (principal); Z79.891 Long term (current) use of opiate analgesic | CPT/HCPCS: 36415; 83036 ==

== ENCOUNTER 2024-01-27 09:10 | Outpatient (CLI) | payer BC, MEDICARE ==
[2024-01-27 10:33] LABS: URINE AMPHETAMINE SCREEN NEGATIVE (Neg); URINE BARBITUATE SCREEN NEGATIVE (Neg); URINE BENZODIAZEPINES SCREEN NEGATIVE (Neg); URINE CANNABINOID SCREEN NEGATIVE (Neg); URINE COCAINE SCREEN NEGATIVE (Neg); URINE METHADONE SCREEN NEGATIVE (Neg); URINE OPIATE SCREEN NEGATIVE (Neg); URINE PHENCYCLIDINE SCREEN NEGATIVE (Neg)
== END 2024-01-27 23:59 | disposition home or self-care (01) ==
LOC: LAB 09:10
PROVIDERS: ATTEND Family Medicine
DX: Z02.83 Encounter for blood-alcohol and blood-drug test (principal)
CPT/HCPCS: 80305

== ENCOUNTER 2024-05-19 09:51 | Outpatient (CLI) | payer BC, MEDICARE ==
[2024-05-19 10:23] LABS: BASOPHILS # (AUTO) 0.1 X10'3 (0-0.2); EOSINOPHILS # (AUTO) 0.1 X10'3 (0-0.9); EOSINOPHILS % (AUTO) 1.7 % (0-6); HEMATOCRIT 42.4 % (35.0-45.0); HEMOGLOBIN 14.2 g/dl (12.0-16.0); LYMPHOCYTES # (AUTO) 2.4 X10'3 (1.1-4.8); LYMPHOCYTES % (AUTO) 28.8 % (21-51); MEAN CORPUSCULAR HEMOGLOBIN 27.1 PG (27.0-31.0); MEAN CORPUSCULAR HGB CONC 33.4 g/dL (33.0-36.5); MEAN CORPUSCULAR VOLUME 81.2 FL (78-98); MEAN PLATELET VOLUME 8.4 FL (7.4-10.4); MONOCYTES # (AUTO) 0.3 X10'3 (0-0.9); MONOCYTES % (AUTO) 3.8 % (2-12); NEUTROPHILS # (AUTO) 5.3 X10'3 (1.8-7.7); NEUTROPHILS % (AUTO) 64.7 % (42-75); PLATELET COUNT 329 X10'3 (140-440); RED BLOOD COUNT 5.21 X10'6 (4.20-5.60); WHITE BLOOD COUNT 8.2 X10'3 (4.5-11.0)
[2024-05-19 10:43] LABS: HEMOGLOBIN A1C 5.5 % (4.5-6.2)
[2024-05-19 11:06] LABS: ALANINE AMINOTRANSFERASE 22 U/L (12-78); ALBUMIN 3.7 G/DL (3.4-5.0); ALBUMIN/GLOBULIN RATIO 1.1 (1.1-1.5); ALKALINE PHOSPHATASE 118 IU/L (46-116); ANION GAP 8 (8-16); ASPARTATE AMINO TRANSFERASE 12 U/L (10-37); BILIRUBIN,TOTAL 0.8 MG/DL (0.1-1.0); BLOOD UREA NITROGEN 9 MG/DL (7-18); CALCIUM 8.8 MG/DL (8.5-10.1); CHLORIDE 106 MMOL/L (99-107); CHOL/HDL RATIO 2.6 (0.00-4.99); CHOLESTEROL 134 MG/DL (0-200); GLUCOSE 86 MG/DL (70-104); HDL CHOLESTEROL 52 MG/DL (35-60); LDL CHOLESTEROL 60 MG/DL (50-100); POTASSIUM 4.2 MMOL/L (3.5-5.1); SODIUM 143 MMOL/L (135-145); THYROID STIMULATING HORMONE 0.61 ulU/ml (0.34-4.50); TOTAL CARBON DIOXIDE 28.9 MMOL/L (24-32); TOTAL PROTEIN 7.2 G/DL (6.4-8.2); TRIGLYCERIDES 82 MG/DL (20-135); eGFR 63 ML/MIN
== END 2024-05-19 23:59 | disposition home or self-care (01) ==
LOC: RAD 09:51
PROVIDERS: ATTEND Family Medicine
DX: Z00.00 Encounter for general adult medical examination without abnormal findings (principal)
CPT/HCPCS: 36415; 80053; 80061; 82043; 82570; 83036; 84443; 85025

== ENCOUNTER 2025-01-12 11:24 | Outpatient (CLI) | payer BC, MEDICARE ==
[2025-01-12 12:04] LABS: MEAN PLATELET VOLUME 8.7 FL (7.4-10.4); RED CELL DISTRIBUTION WIDTH 14.7 % (11.5-14.5)
[2025-01-12 12:15] LABS: URINE AMPHETAMINE SCREEN NEGATIVE (Neg); URINE BARBITUATE SCREEN NEGATIVE (Neg); URINE BENZODIAZEPINES SCREEN NEGATIVE (Neg); URINE CANNABINOID SCREEN NEGATIVE (Neg); URINE COCAINE SCREEN NEGATIVE (Neg); URINE METHADONE SCREEN NEGATIVE (Neg); URINE OPIATE SCREEN NEGATIVE (Neg); URINE PHENCYCLIDINE SCREEN NEGATIVE (Neg)
[2025-01-12 12:28] LABS: CHOL/HDL RATIO 2.5 (0.00-4.99); CREATININE 0.81 MG/DL (0.40-0.90); LDL CHOLESTEROL 89 MG/DL (50-100); TOTAL CARBON DIOXIDE 34.3 MMOL/L (24-32); eGFR 71 ML/MIN
== END 2025-01-12 23:59 | disposition home or self-care (01) ==
LOC: LAB 11:24
PROVIDERS: ATTEND Family Medicine
DX: Z00.00 Encounter for general adult medical examination without abnormal findings (principal)
CPT/HCPCS: 36415; 80053; 80061; 80305; 82043; 82570; 83036; 84439; 84443; 85025